=== PATIENT | male | born 1995 | race African-American/Black ===

== ENCOUNTER 2019-06-08 20:40 | Emergency (ER) | payer OTHER, MEDICAID, SELFPAY ==
[2019-06-08 20:46] VITALS: BP 148/78; PULSE 109; RESP 21; O2SAT 100; BMI 24.4
[2019-06-08 21:17] VITALS: BP 124/98; PULSE 97; RESP 16; O2SAT 97
--- NOTE | 2019-06-08 21:25 | ED.SEIZURE ---
HPI - Seizure General Chief Complaint: Seizure Stated Complaint: Seizure Time Seen by Provider: 06/08/19 21:02 Source: EMS Mode of arrival: EMS Limitations: no limitations History of Present Illness HPI Narrative: Patient is a 24-year-old male brought in by EMS for concerns of a seizure. Patient states that he was at work when he had no apparent prodromal symptoms. He states that he was told that he had seizure-like activity. He stated that he was standing in the next minute he was on the ground with people around him. There is no loss of bowel or bladder. Did not bite his tongue. Does report that he was somewhat confused afterwards a by the time he reached the emergency department he was alert and oriented. Patient has had 2 prior seizures several months ago. Patient states that he thinks that these were related to him quitting alcohol ?cold turkey? he has not seen a neurologist. He is not on anti seizure medications. Initial report was that the patient's last drink was 10 days ago. However when I talked to him about it appears that this may have actually been more like his last drink was in the past couple days. Upon my evaluation patient reported no symptoms. Related Data Previous Rx's Medication Instructions Recorded amoxicillin 500 mg capsule 500 mg PO BID #20 cap 05/03/19 levetiracetam [Keppra] 500 mg PO BID #60 tab 06/08/19 Allergies Allergy/AdvReac Type Severity Reaction Status Date / Time cat dander [CAT DANDER] Allergy Mild nose runs, Verified 06/08/19 20:55 eyes water Review of Systems Constitutional Constitutional: Denies fatigue, Denies fever(s), Denies frequent falls and Denies headache(s) Eyes Eyes: Denies change in vision ENT Ears, Nose, Mouth, and Throat: Denies headache(s) Cardiovascular Cardiovascular: Denies chest pain, Denies palpitations and Denies dyspnea Respiratory Respiratory: Denies cough and Denies dyspnea Gastrointestinal Gastrointestinal: Denies abdominal pain, Denies nausea and Denies vomiting Genitourinary Genitourinary: Denies dysuria Musculoskeletal Musculoskeletal: Denies myalgias and Denies arthralgias Integumentary/Breasts Skin/Breast: Denies lesions and Denies rash Neurologic Neurologic: Denies behavioral changes, Denies frequent falls and Denies headache(s) Psychiatric Psychiatric: Denies behavioral changes Endocrine Endocrine: Denies fatigue and Denies palpitations Hematologic/Lymphatic Hematologic/Lymphatic: Denies easy bleeding and Denies easy bruising Patient History Medical History Seizure-like activity (Acute) Social History Smoking Status: Never smoker alcohol intake frequency: 0-2 drinks per day Alcohol type: hard liquor Substance Use Type: does not use Exam Initial Vital Signs Initial Vital Signs: Vital Signs Pulse Rate 109 H 06/08/19 20:46 Respiratory Rate 21 06/08/19 20:46 Blood Pressure 148/78 H 06/08/19 20:46 Pulse Oximetry 100 06/08/19 20:46 Const General: cooperative, comfortable, well developed and well groomed Orientation: alert, awake and oriented x3 HENMT Head: normal to inspection and normocephalic Nose: external nose normal Face and sinus: normal facial exam Mouth: oral mucosae normal Eyes Pupils: PERRL Resp Effort & Inspection: normal respiratory effort Auscultation: clear to auscultation bilaterally Cardio Rate: regular rate Rhythm: regular rhythm Pulses: radial pulses present GI Inspection: non-distended Palpation: soft and No firm Back/Spine/Pelvis Cervical Spine: No cervical spinal tenderness Skin Lesions: no lesions Rashes: no rashes Neuro General: alert, awake and oriented x3 Cranial Nerves: CN's II-XI intact bilaterally Cognition: normal cognition Speech: speech normal Gait: normal gait Motor: muscle tone normal throughout Sensory Exam: no sensory deficits noted Extrem General: normal to inspection and capillary refill normal Psych Appearance: grossly normal and well kempt Scores GCS [place] coma scale eye opening: Spontaneous [place] coma scale verbal response: Orientated [place] coma scale motor response: Obey commands [place] coma scale total score: 15 Nexus Score for C-Spine Focal Neurologic deficit present: No Midline spinal tenderness present: No Altered level of conciousness present: No Intoxication present: No Distracting Injury Present: No Nexus Criteria for C-spine: 0 Course Orders Ordered: Discontinued Medications Levetiracetam (Keppra) 500 mg PO NOW ONE Stop: 06/08/19 21:29 Last Admin: 06/08/19 21:46 Dose: 500 mg Documented by: LREED Vital Signs Vital signs: Vital Signs - 8 hr 06/08/19 20:46 06/08/19 21:17 06/08/19 22:22 Pulse Rate 109 H 97 H 98 H Respiratory Rate 21 16 20 Blood Pressure 148/78 H 139/85 Blood Pressure [Right Arm] 124/98 H Pulse Oximetry 100 97 100 MDM - Seizure MDM Narrative Medical decision making narrative: Patient was alert and oriented x3. In my opinion has capacity make decisions. No injuries reported from the patient or found on exam. His neck is unremarkable. After long discussion with the patient and his grandmother at bedside I do have some concern that his seizure like activities may be alcohol withdrawal. Like I said in the HPI it was reported that his last drink was 10 days ago. This would make it unlikely that today's event was related to alcohol withdrawal however further questioning I do have some suspicion that his last drink may have been within the past 1-2 days. I did inform the patient that it sounds like he has had a seizure. I do not feel the need for head CT your blood work plus the patient declined the offer for any of these interventions. I did inform him that he is not to drive until he is cleared by a neurologist or his primary provider. He expressed understanding of this. His grandmother was at bedside for this discussion. Had a long discussion with him regarding these activities in his alcohol use. Patient declined any help for alcohol out of the emergency department. He was provided resources that he could call. He stated that he knew of AA meetings in the local area. We also discussed that his seizures could potentially be from an underlying seizure disorder. I did give him a dose of Keppra here in the emergency department and will send home with a prescription for this. He was given phone number that he could call to establish a primary provider in the area. Patient was informed he can return to the emergency department any point for new or worsening symptoms. Both he and his grandmother expressed understanding and agreement with plan. Discharge Plan Departure Patient Disposition: Home Clinical Impression: Seizure Discharge Date/Time: 06/08/19 21:46 Instructions: Alcohol Use Disorder, DI for Seizure (Not Epilepsy/Seizure Disorder) Activity Restrictions/Additional Instructions: You are advised that your not to drive until you are cleared by your primary doctor or a neurologist. I recommend that you use the resources that you were given to get some help for your alcohol use. I also recommend that on Sunday you contact the health learning disabilities resource teacher at [phone]. They can help you get established with a primary provider. I recommend that you start taking the seizure medication as directed. Return to the emergency department for any new or worsening symptoms Prescriptions: New levetiracetam [Keppra] 500 mg tablet 500 mg PO BID Qty: 60 RF: 0 No Action amoxicillin 500 mg capsule 500 mg PO BID Qty: 20 RF: 0 Referrals: Vadim Ribeiro MD [Primary Care Provider] -
[2019-06-08] MEDS: levETIRAcetam 250 MG TABLET 500 MG PO (21:46)
[2019-06-08 22:22] VITALS: BP 139/85; PULSE 98; RESP 20; O2SAT 100
== END 2019-06-08 21:46 | disposition home or self-care (01) ==
PROVIDERS: Emergency Provider Emergency Medicine; Family Provider Family Medicine; PCP Family Medicine
DX: R56.9 Unspecified convulsions (principal)
CPT/HCPCS: 99283

== ENCOUNTER 2020-03-05 16:50 | Emergency (ER) | payer OTHER, MEDICAID, SELFPAY ==
[2020-03-05 16:58] VITALS: BP 132/84; PULSE 103; RESP 20; TEMP 36.8; O2SAT 99; BMI 25.7
[2020-03-05] MEDS: diazePAM 5 MG TABLET PO (17:48)
--- NOTE | 2020-03-05 17:55 | ED.SEIZURE ---
HPI - Seizure General Chief Complaint: Seizure Stated Complaint: seizure Time Seen by Provider: 03/05/20 17:00 Source: patient Mode of arrival: EMS Limitations: no limitations History of Present Illness HPI Narrative: Patient is a 25-year-old of alcohol withdrawal seizures presenting after a seizure today. He says that last night he did not drink as much as he usually does he usually drinks about a 5th vodka every and night he is unsure when he drank last night. He had a tonic-clonic seizure witnessed by his coworkers today. He denies any tongue injury or urinary incontinence. He says it has happened to him in the past. He is not ready to quit drinking a he would like to taper off his drinking. Related Data Previous Rx's Medication Instructions Recorded amoxicillin 500 mg capsule 500 mg PO BID #20 cap 05/03/19 levetiracetam [Keppra] 500 mg PO BID #60 tab 06/08/19 levetiracetam [Keppra] 500 mg PO BID #60 tab 03/05/20 Allergies Allergy/AdvReac Type Severity Reaction Status Date / Time cat dander [CAT DANDER] Allergy Mild nose runs, Verified 06/08/19 20:55 eyes water Review of Systems Review of Systems ROS Unobtainable: All systems reviewed & are unremarkable except as noted in HPI and below Constitutional Constitutional: Denies chills, Denies fever(s), Denies lethargy and Denies weakness Eyes Eyes: Denies change in vision, Denies eye discharge, Denies irritation and Denies loss of vision ENT Ears, Nose, Mouth, and Throat: Denies change in voice, Denies neck pain and Denies sore throat Cardiovascular Cardiovascular: Denies chest pain, Denies irregular heart rhythm, Denies lightheadedness, Denies palpitations, Denies dyspnea, Denies dyspnea on exertion and Denies orthopnea Respiratory Respiratory: Denies cough, Denies dyspnea, Denies dyspnea on exertion and Denies wheezing Gastrointestinal Gastrointestinal: Denies abdominal pain, Denies change in bowel habits, Denies diarrhea, Denies nausea and Denies vomiting Musculoskeletal Musculoskeletal: Denies neck pain Integumentary/Breasts Skin/Breast: Denies pruritus, Denies erythema, Denies rash and Denies wounds Neurologic Neurologic: Denies confusion, Denies loss of vision, Reports seizure-like activity and Denies weakness Psychiatric Psychiatric: Denies anxiety, Denies confusion, Denies depression, Denies homicidal ideation and Denies suicidal ideation Endocrine Endocrine: Denies palpitations Allergic/Immunologic Allergic/Immunologic: Denies wheezing Patient History Medical History Seizure-like activity (Acute) Social History Smoking Status: Never smoker Smoking Status: Never smoker alcohol intake frequency: 3 or more drinks per day Alcohol type: hard liquor Substance Use Type: marijuana Exam Initial Vital Signs Initial Vital Signs: Vital Signs Temperature 98.2 F 03/05/20 16:58 Pulse Rate 103 H 03/05/20 16:58 Respiratory Rate 20 03/05/20 16:58 Blood Pressure 132/84 03/05/20 16:58 Pulse Oximetry 99 03/05/20 16:58 GENERAL: Well-appearing, well-nourished and in no acute distress. HEENT: Head atraumatic,EOMI, pupils reactive, face symmetric, moist mucous membranes, no tongue injury CARDIOVASCULAR: Regular rate and rhythm without murmurs, rubs or gallops. RESPIRATORY: Breath sounds equal bilaterally, no wheezes rales or rhonchi. ABDOMEN: Soft, nontender. Normoactive bowel sounds all 4 quadrants. No guarding or rebound. EXTREMITIES: Normal range of motion, no clubbing or edema. Neurovascularly intact NEUROLOGICAL: Alert and oriented x4.Normal gait and speech. Cranial nerves II through XII grossly intact. Snow Fence Erector strength equal bilaterally no asterixis SKIN: Warm, dry, no laceration, no petechiae, no rashes or lesions. Scores NIH Stroke Scale Level of Conciousness: Alert, keenly responsive Ask month/age: Answers both questions correctly. Open/close eyes, close hand: Performs both tasks correctly Best gaze horizontal: Normal Visual [place]: No visual loss Facial palsy: Normal symetrical movement Left arm drift: No drift for full 10 sec Right arm drift: No drift for full 10 sec Left leg drift: No drift for full 10 sec Right leg drift: No drift for full 10 sec Limb ataxia: Absent Sensory on face/arms/legs: Normal, no sensory loss Best language: No aphasia, normal Dysarthria: Normal Extinction or inattention: No abnormality Total NIH Stroke scale score: 0 Course Orders Ordered: Discontinued Medications Diazepam (Valium) 5 mg PO NOW ONE Stop: 03/05/20 17:24 Last Admin: 03/05/20 17:48 Dose: 5 mg Documented by: SANGITA Vital Signs Vital signs: Vital Signs - 8 hr 03/05/20 16:58 03/05/20 18:26 Temperature 98.2 F Pulse Rate 103 H 100 H Respiratory Rate 20 24 Blood Pressure 132/84 126/93 H Pulse Oximetry 99 99 MDM - Seizure MDM Narrative Medical decision making narrative: Patient is absolutely refusing an IV or blood work. He would like to decrease his drinking safely. I did discuss with him a plan on how to decrease his drinking. He is aware that he is not allowed to drive until he is seizure-free. He understands that he may go into a fatal arrhythmia and from alcohol withdrawal. He is given 1 dose of Valium but plans to continue to drink so he will not be given a prescription. He was previously given prescription for Keppra, his last seizure was suspected for alcohol with drawn which he denied. I he states he never filled Keppra. The patient is clinically sober, free from distracting injury, appears to have intact insight, judgment and reason. Does not meet criteria for involuntary hospitalization. Patient has the capacity to make decisions. Discharge Plan Departure Patient Disposition: Home Clinical Impression: Seizure Alcohol withdrawal Qualifiers: Complication of substance-induced condition: with unspecified complication Qualified Code(s): F10.239 - Alcohol dependence with withdrawal, unspecified Discharge Date/Time: 03/05/20 18:40 Instructions: Drug and Alcohol Withdrawal Activity Restrictions/Additional Instructions: DO NOT DRIVE UNTIL CLEARED BY NEUROLOGY *You have been diagnosed with alcohol withdrawal and seizure *What to do: Recommend decreasing your drinking slowly or you will need to stop drinking under supervision and go to detox *Continue to take medications as directed Keppra 500 mg twice a day --> SENT TO [facility] *Follow up with your primary care provider in 2-3 days You will need to see a neurologist *Return to ER if you should have recurrent seizure, shaking, or any new, worsening or concerning symptoms Prescriptions: New levetiracetam [Keppra] 500 mg tablet 500 mg PO BID Qty: 60 RF: 0 No Action amoxicillin 500 mg capsule 500 mg PO BID Qty: 20 RF: 0 levetiracetam [Keppra] 500 mg tablet 500 mg PO BID Qty: 60 RF: 0 Referrals: [facility] [Outside] Vadim Ribeiro MD [Primary Care Provider] - Ken Zhang MD [Non-Staff] -
[2020-03-05 18:26] VITALS: BP 126/93; PULSE 100; RESP 24; O2SAT 99
== END 2020-03-05 18:40 | disposition home or self-care (01) ==
PROVIDERS: Emergency Provider Emergency Medicine; Family Provider Family Medicine; PCP Family Medicine
DX: R56.9 Unspecified convulsions (principal); F10.239 Alcohol dependence with withdrawal, unspecified
CPT/HCPCS: 99283

== ENCOUNTER 2020-07-25 19:51 | Emergency (ER) | payer OTHER, MEDICAID, SELFPAY ==
[2020-07-25 20:05] VITALS: BP 158/96; PULSE 133; RESP 24; TEMP 37.1; O2SAT 99; BMI 25.0
--- NOTE | 2020-07-25 20:09 | ED_ITS ---
HPI - General Adult General Chief complaint: Blood/Body fluid exposure Stated complaint: possible needle stick in public bathroom Time Seen by Provider: 07/25/20 20:00 Source: patient Mode of arrival: Ambulatory Limitations: no limitations History of Present Illness HPI narrative: 25-year-old male nonsmoker with history of seizures and anxiety presents with the chief complaint of feared needlestick exposure 2 days ago. He states he was at a public bathroom and when drying his hands he pulled out some papertowel and felt a poke on his finger. He looked and couldn't see well but thinks there may have been a needle in there. He did not see for sure, he did not notice if there was a syringe or not. He was not wearing gloves. He states it did not draw blood and in fact poked him on an existing callous on the palm of his right hand. He denies pain, redness, swelling, or other complaint. He is concerned about exposure to HIV and refuses any lab work and is requesting antiviral medications. He denies fever, chills, sore throat, loss of smell, cough, shortness of breath or exposure to persons with known COVID Related Data Previous Rx's Medication Instructions Recorded amoxicillin 500 mg capsule 500 mg PO BID #20 cap 05/03/19 levetiracetam [Keppra] 500 mg PO BID #60 tab 06/08/19 levetiracetam [Keppra] 500 mg PO BID #60 tab 03/05/20 Allergies Allergy/AdvReac Type Severity Reaction Status Date / Time cat dander [CAT DANDER] Allergy Mild nose runs, Verified 07/25/20 20:12 eyes water Review of Systems Constitutional Constitutional: Denies chills, Denies fatigue, Denies fever(s), Denies frequent falls, Denies lethargy and Denies weakness Eyes Eyes: Denies change in vision, Denies eye discharge, Denies irritation and Denies loss of vision ENT Ears, Nose, Mouth, and Throat: Denies change in voice, Denies dizziness, Denies neck pain, Denies sore throat and Denies throat swelling Cardiovascular Cardiovascular: Denies chest pain, Denies irregular heart rhythm, Denies lightheadedness, Denies palpitations, Denies dyspnea, Denies dyspnea on exertion and Denies orthopnea Respiratory Respiratory: Denies cough, Denies dyspnea, Denies dyspnea on exertion and Denies wheezing Gastrointestinal Gastrointestinal: Denies abdominal pain, Denies change in bowel habits, Denies diarrhea, Denies nausea and Denies vomiting Musculoskeletal Musculoskeletal: Denies neck pain and Denies numbness Integumentary/Breasts Skin/Breast: Denies pruritus, Denies erythema, Denies rash and Reports wounds Neurologic Neurologic: Denies behavioral changes, Denies confusion, Denies dizziness, Denies frequent falls, Denies loss of vision, Denies numbness and Denies weakness Psychiatric Psychiatric: Denies anxiety, Denies behavioral changes, Denies confusion, Denies depression, Denies homicidal ideation and Denies suicidal ideation Endocrine Endocrine: Denies fatigue, Denies flushing and Denies palpitations Hematologic/Lymphatic Hematologic/Lymphatic: Denies easy bruising Allergic/Immunologic Allergic/Immunologic: Denies urticaria, Denies throat swelling and Denies wheez ing Patient History Medical History Seizure-like activity Social History Smoking Status: Never smoker Smoking Status: Never smoker alcohol intake frequency: 3 or more drinks per day Alcohol type: hard liquor Substance Use Type: marijuana Exam Narrative Exam Narrative: GEN: AOx3 and in mild distress, anxious EYES: Pupils are equal, round, and reactive to light and accommodation. Extraoccular muscles are intact bilaterally. There is no subconjunctival hemorrhage or exudate. CHEST: Lungs are clear to auscultation bilaterally and free of wheezes, rales, or rhonchi. Heart rate is regular rhythm, there are no murmurs, clicks, rubs, or gallops. There is no chest wall tenderness. ABD: Abdomen is soft and nontender. There is no guarding or rebound. Bowel sounds are normal in all 4 quadrants. There is no mass or organomegaly. EXT: Full painless ROM of all extremities with no loss of sensation or strength. SKIN: No evidence of injury or punture to hand. Warm, pink, and dry. No erythema or rash Initial Vital Signs Initial Vital Signs: Vital Signs Temperature 98.7 F 07/25/20 20:05 Pulse Rate 133 H 07/25/20 20:05 Respiratory Rate 24 12/20/20 20:05 Blood Pressure 158/96 H 07/25/20 20:05 Pulse Oximetry 99 07/25/20 20:05 Course Course Course Narrative: I spent a healthy amount of time at bedside discussing with patient. I spoke to him about blood borne pathogens and what would constitute a significant exposure. I did indicate that this scenario would be extremely low risk and that it would not likely meet the definition of significant exposure. He stated that he was admittedly a hypochondriac and that he really just wanted to get the antiviral therapies. I discussed ary and benefit scenarios and told him it would not be indicated to treat at this time. He then asked me to close the door and states that he needed to tell me that he also had unprotected sex with a questionable individual 2 hours prior to the needle stick. He denies any penile drainage, burning, discharge, rash, blisters or other. I told him I'd be happy to test for STDs including HepC, HIV, but when he heard that it would require a blood draw he quickly refused and stated that he would prefer to follow up with his doctor. He understands that he can come back for evaluation in the future should he change his mind and also was given return precautions. Vital Signs Vital signs: Vital Signs - 8 hr 07/25/20 20:05 07/25/20 20:48 Temperature 98.7 F Pulse Rate 133 H 96 H Respiratory Rate 24 18 Blood Pressure 158/96 H 144/83 H Pulse Oximetry 99 100 Discharge Plan Departure Patient Disposition: Home Clinical Impression: Needlestick injury accident Instructions: DI for Accidental Exposure to Body Fluids Activity Restrictions/Additional Instructions: *You have been diagnosed with [possible exposure to needlestick] *What to do: *The criteria for high risk exposure are thankfully not met. If you change your mind about blood draws to further evaluate please feel free to return to the emergency department, the walk-in clinic or call the [facility] resource line listed below *Follow up with your primary care provider in 2-3 days, call for an appointment. Let them know you were seen in the Emergency Department and that we ask that you be seen in follow up *Return to ER if you should have any new, worsening or concerning symptoms Prescriptions: No Action amoxicillin 500 mg capsule 500 mg PO BID Qty: 20 RF: 0 levetiracetam [Keppra] 500 mg tablet 500 mg PO BID Qty: 60 RF: 0 levetiracetam [Keppra] 500 mg tablet 500 mg PO BID Qty: 60 RF: 0 Referrals: [facility] [Outside] Vadim Ribeiro MD [Primary Care Provider] -
[2020-07-25 20:48] VITALS: BP 144/83; PULSE 96; RESP 18; O2SAT 100
== END 2020-07-25 20:50 | disposition home or self-care (01) ==
PROVIDERS: Emergency Provider Emergency Medicine; Family Provider Family Medicine; PCP Family Medicine
DX: Z77.21 Contact with and (suspected) exposure to potentially hazardous body fluids (principal); W46.0XXA Contact with hypodermic needle, initial encounter
CPT/HCPCS: 99281

== ENCOUNTER 2021-10-23 15:34 | Emergency (ER) | payer OTHER, MEDICAID, SELFPAY ==
[2021-10-23 15:39] VITALS: BP 139/82; PULSE 100; RESP 20; TEMP 36.2; O2SAT 100
--- NOTE | 2021-10-23 15:42 | ED.SEIZURE ---
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 Per EMS they did not witness the activity but patient did appear postictal and has had clearing mentation on arrival. He had a glucose in the 130s. Patient refused IV access or other interventions. Patient tells EMS that they have had seizures in the past. They recall feeling unwell and very shaky today. They do not recall the event. They states there were little confused but mentation is feeling better. Patient feels nauseated but no vomiting. No chest pain or shortness of breath. No numbness, tingling or weakness. No fecal or urine incontinence. Patient denies any cuts or lacerations to his tongue or mouth. He states he has never been on medications. When asked about alcohol use he denies but states he does drink a pt daily. When asked about alcohol withdrawal seizures patient denies but prior visits suggest that he may have had alcohol withdrawal seizures. He denies tobacco. States he uses marijuana but denies other illicit. Related Data Previous Rx's Medication Instructions Recorded bupropion HCl 100 mg tablet 100 mg PO BID #60 tab 09/27/21 Allergies Allergy/AdvReac Type Severity Reaction Status Date / Time cat dander [CAT DANDER] Allergy Mild nose runs, Verified 09/27/21 15:47 eyes water Review of Systems Review of Systems ROS Unobtainable: All systems reviewed & are unremarkable except as noted in HPI and below Patient History Medical History Adult ADHD (attention deficit hyperactivity disorder) Depression Eczema Hearing decreased History of alcohol abuse Seizure (~2016) Seizure-like activity Sinus headache Tinnitus Family History Mother Sbtyn-3-ewpcyruhggo deficiency Father Diabetes mellitus Social History Smoking Status: Never smoker Smoking Status: Never smoker alcohol intake frequency: a few times a week Alcohol type: hard liquor Substance Use Type: marijuana Exam Narrative Exam Narrative: GEN: well nourished, well appearing male, alert and oriented x 3, patient appears to be in mild distress. HEENT: Atraumatic, pupils are equal round reactive to light, extraocular movements are intact, nares are clear, TMs are clear with no fluid, there is no conjunctival pallor. Throat is clear without any exudates, erythema, tonsillar enlargement or uvular deviation, no facial droop. No tongue or lip lacerations. HEART: Regular rate and rhythm without murmur, clicks, rubs. Pulses are equal in upper and lower extremities LUNGS:Lungs clear to auscultation, no wheezes, rales, crackles, chest moves symmetrically, no tachypnea accessory muscle use. ABD:bowel sounds normal, soft, non-tender, no guarding, rebound, rigidity, no masses noted, no hepatosplenomegaly :No CVA tenderness MSCL: Non-tender, no muscle atrophy, muscles strength 5/5 upper and lower extremities, full range of motion. NEURO:CN 2-12 intact, sensation normal, mild generalized tremor. SKIN: No rash, erythema or other skin changes. Initial Vital Signs Initial Vital Signs: Vital Signs Temperature 97.1 F L 10/23/21 15:39 Pulse Rate 100 H 10/23/21 15:39 Respiratory Rate 20 10/23/21 15:39 Blood Pressure 139/82 10/23/21 15:39 Pulse Oximetry 100 10/23/21 15:39 Scores [facility] [place] coma scale eye opening: Spontaneous [place] coma scale verbal response: Orientated [place] coma scale motor response: Obey commands [place] coma scale total score: 15 Course Orders Ordered: Discontinued Medications Lorazepam (Lorazepam 0.5 Mg Tablet) 1 mg PO NOW ONE Stop: 10/23/21 15:40 Last Admin: 10/23/21 15:43 Dose: 1 mg Documented by: ISABEL Reevaluation(s) Reevaluation #1: Patient did initially refuse any labs or intervention. Patient alert, appropriate seems to understand his risk versus benefit. He was given a dose of oral Ativan as he is quite shaky. I do suspect he may be having some alcohol withdrawal and his description of drinking a pint daily. He cannot tell me his timing of last ingestion of alcohol. He denies hallucinations. He does appear competent to make the decision to not obtain further workup. We discussed I think this is the wrong choice and that he should be more fully evaluated there was multiple causes that could have caused his seizure today. He did take p.o. Ativan which I think may be helpful for potential alcohol withdrawal. Patient had some improvement in his tremor. His aunt is at bedside and was present while reviewed his Against Medical Advice paperwork. He has not had any additional seizure activity after being observed for over an hour. Patient states he does have 2 roommates and they can help monitor the patient. Time: 16:46 Vital Signs Vital signs: Vital Signs - 8 hr 10/23/21 15:39 10/23/21 16:29 Temperature 97.1 F L Pulse Rate 100 H 94 H Respiratory Rate 20 18 Blood Pressure 139/82 129/74 Pulse Oximetry 100 98 MDM - Seizure MDM Narrative Medical decision making narrative: This is a 26-year-old male who comes in with described seizure activity and what appeared to be postictal to EMS. He had normal glucose in the field he has refused labs, IV draw our imaging. States he is very afraid of needles. Patient did have p.o. Ativan the department he is very shaky and I suspect he has some alcohol withdrawal potentially precipitating seizure activity. He does drink quite heavily he has been here before for suspected alcohol withdrawal seizures as well. Patient had some improvement in his tremor. He appears alert, oriented and competent to make decisions at this time. His aunt is at bedside as well prior to leaving Against Medical Advice. He was willing to be monitored and watched for about an hour and has not had any additional seizure activity and his mentation is continued to improve. We did discuss he can return at any time and that others a wide differential for seizures in the causes that we have not evaluated and without doing so he could potentially have a deadly cause of his seizure activity today and go home and . He does have roommates he states that they would likely be willing to monitor him. His anti is going to drive him this evening. He was encouraged to return at any time. Discharge Plan Departure Patient Disposition: Left Against Medical Advice Clinical Impression: Seizure Activity Restrictions/Additional Instructions: You appear to had a seizure today. This is likely related to alcohol use. It is recommended that you have labs and workup. As you have refused there could be other causes that are missed that are dangerous and can cause . You are welcome to return at any time cleared please return for recurrent seizures, severe headaches, altered mental status, persistent vomiting, new weakness numbness, tingling, hallucinations or other new or concerning symptoms. Prescriptions: No Action bupropion HCl 100 mg tablet 100 mg PO BID Qty: 60 0RF Rx Instructions: Start with 1 tab daily for one week, then increase to 2 tabs daily if needed for symptoms Referrals: Vadim Ribeiro MD [Primary Care Provider] - Stand Alone Forms: Against Medical Advice
[2021-10-23] MEDS: LORazepam 0.5 MG TABLET 1 MG PO (15:43)
[2021-10-23 16:29] VITALS: BP 129/74; PULSE 94; RESP 18; O2SAT 98
== END 2021-10-23 16:55 | disposition left against medical advice (07) ==
PROVIDERS: Emergency Provider Emergency Medicine; Family Provider Family Medicine; PCP Family Medicine
DX: R56.9 Unspecified convulsions (principal); Z53.29 Procedure and treatment not carried out because of patient's decision for other reasons
CPT/HCPCS: 99283

== ENCOUNTER 2021-11-11 16:40 | Emergency (ER) | payer OTHER, MEDICAID, SELFPAY ==
[2021-11-11] VITALS (7 sets, daily range): BP systolic 132–142; BP diastolic 72–81; PULSE 80–109; RESP 14–16; TEMP 36.2; O2SAT 97–100
--- NOTE | 2021-11-11 16:48 | PC.NURSE ---
Pt refusing all lab work and IV access. agreeable to head CT. Dr Nolan made aware
--- NOTE | 2021-11-11 16:49 | DI.CT.S_ITS ---
PROCEDURE: CT HEAD/BRAIN WO CON INDICATIONS: seizure etoh TECHNIQUE: Noncontrast 4.5 mm thick angled axial sections acquired from the foramen magnum to the vertex, with coronal and sagittal reformats. For radiation dose reduction, the following was used: automated exposure control, adjustment of mA and/or kV according to patient size. COMPARISON: [facility], CT, HEAD WITHOUT CONTRAST, 09/03/2017, 15:43. FINDINGS: Image quality: Excellent. CSF spaces: Basal cisterns are patent. No extra-axial fluid collections. Ventricles are normal in size and shape. Brain: No midline shift. No intracranial masses or hemorrhage. Miller-white matter interface is normal. Skull and face: Calvarium and visualized facial bones are intact, without suspicious lesions. Small left frontal scalp hematoma. Sinuses: Visualized sinuses and mastoids are clear. IMPRESSION: No acute intracranial disease process. Dictated by: Alejandra Coon MD, PhD on 11/11/2021 at 17:14 Approved by: Alejandra Coon MD, PhD on 11/11/2021 at 17:16
--- NOTE | 2021-11-11 17:16 | ED_ITS ---
HPI - Seizure General Chief Complaint: Seizure Stated Complaint: Seizure Time Seen by Provider: 11/11/21 16:48 Source: patient and EMS Mode of arrival: EMS Limitations: altered mental status History of Present Illness HPI Narrative: The patient is a 26-year-old male has history of alcohol abuse and previous alcohol withdrawal seizures. Presenting today with his seizure. He was at work when he fell forward hitting his head and had brief seizure. No urinary incontinence or injuries to tongue. Patient says his last drink was about 24 hours ago. He tried to stop. Grandmother actually reports that she has been decreasing his alcohol intake by 1 ouunce every 2 days. Patient has no other complaints. He is adamantly refusing an IV for blood draw. He is agreeable to head CT Related Data Previous Rx's Medication Instructions Recorded bupropion HCl 100 mg tablet See Rx Instructions .ROUTE 10/27/21 .COMPLEX #60 tab dextroamphetamine-amphetamine ER 5 See Rx Instructions PO DAILY #90 11/01/21 mg 24hr capsule,extend release cap Allergies Allergy/AdvReac Type Severity Reaction Status Date / Time cat dander [CAT DANDER] Allergy Mild nose runs, Verified 09/27/21 15:47 eyes water Review of Systems Review of Systems Narrative: GENERAL: Denies chills, fatigue, malaise, fever, sweats, travel HEENT: Denies sinus pain, ear pain, sore throat, difficulty swallowing, neck pain RESPIRATORY: Denies dyspnea, cough, wheezing, hemoptysis, sputum. CARDIOVASCULAR: Denies chest pain, palpitations, orthopnea, edema GASTROINTESTINAL: Denies nausea, vomiting, abdominal pain, diarrhea, constipation, melena. : Denies dysuria, frequency, incontinence, hematuria, urinary retention, flank pain. MUSCULOSKELETAL: Denies weakness, joint pain, or bony pain SKIN: No rash, no erythema, no pruritus NEUROLOGIC: See HPI PSYCHIATRIC: See HPI 12 point review of systems is negative except for those stated above and HPI Patient History Medical History Adult ADHD (attention deficit hyperactivity disorder) Depression Eczema Hearing decreased History of alcohol abuse Seizure (~2016) Seizure-like activity Sinus headache Tinnitus Family History Mother Bqrim-2-ptgtdstwuad deficiency Father Diabetes mellitus Social History Smoking Status: Never smoker Smoking Status: Never smoker alcohol intake frequency: 3 or more drinks per day Alcohol type: hard liquor Substance Use Type: marijuana Exam Initial Vital Signs Initial Vital Signs: Vital Signs Temperature 97.1 F L 11/11/21 16:40 Pulse Rate 109 H 11/11/21 16:40 Respiratory Rate 16 11/11/21 16:40 Blood Pressure 142/81 H 11/11/21 16:40 Pulse Oximetry 99 11/11/21 16:40 GENERAL: Alert well-appearing [id number] in no acute distress. HEENT: Head atraumatic head contusion pupils reactive, face symmetric, no tongue injury CARDIOVASCULAR: Regular rate and rhythm without murmurs, rubs or gallops. RESPIRATORY: Breath sounds equal bilaterally, no wheezes rales or rhonchi. ABDOMEN: Soft, nontender. Normoactive bowel sounds all 4 quadrants. No guarding or rebound. EXTREMITIES: Normal range of motion, no clubbing or edema. Neurovascularly intact NEUROLOGICAL: Alert and oriented x4.Normal gait and speech. Cranial nerves II through XII grossly intact. Good [id number], good [id number], strength equal bilaterally, no dysarthria or aphasia, sensation in tact to soft touch bilaterally, no visual changes, no facial droop SKIN: Warm, dry, no laceration, no petechiae, no rashes or lesions. Course Orders Ordered: ED Orders 11/11/21 16:48 Basic Metabolic Panel Stat Complete Blood Count AUTO DIFF Stat Magnesium Stat Prolactin Stat Urinalysis Screen (Dip Only) Stat Urine Drug Screen, Rapid Stat EKG-12 Lead Stat 11/11/21 16:49 CT head/brain wo con Stat Discontinued Medications Lorazepam (Lorazepam 0.5 Mg Tablet) 2 mg PO NOW ONE Stop: 11/11/21 18:35 Last Admin: 11/11/21 18:46 Dose: 2 mg Documented by: Vital Signs Vital signs: Vital Signs - 8 hr 11/11/21 16:40 11/11/21 16:43 11/11/21 17:01 Temperature 97.1 F L Pulse Rate 109 H 107 H 90 Respiratory Rate 16 Blood Pressure 142/81 H Pulse Oximetry 99 100 97 11/11/21 17:30 11/11/21 18:00 Temperature Pulse Rate 87 85 Respiratory Rate 14 Blood Pressure Pulse Oximetry 100 100 MDM - Seizure Lab Data Labs: Point of Care Testing Glucose POC [address] scan - head: Radiologist's Impression: PROCEDURE:? CT HEAD/BRAIN WO CON ? INDICATIONS:? seizure etoh ? TECHNIQUE:? Noncontrast 4.5 mm thick angled axial sections acquired from the foramen magnum to the vertex, with coronal and sagittal reformats.? For radiation dose reduction, the following was used:? automated exposure control, adjustment of mA and/or kV according to patient size.? ? COMPARISON:? [facility] [place], CT, HEAD WITHOUT CONTRAST, 09/03/2017, 15:43. ? FINDINGS:? Image quality:? Excellent.? ? CSF spaces:? Basal cisterns are patent.? No extra-axial fluid collections.? Ventricles are normal in size and shape.? ? Brain:? No midline shift.? No intracranial masses or hemorrhage.? Miller-white matter interface is normal.? ? Skull and face:? Calvarium and visualized facial bones are intact, without suspicious lesions.? Small left frontal scalp hematoma.? ? Sinuses:? Visualized sinuses and mastoids are clear.? ? IMPRESSION:? No acute intracranial disease process. ? ? Dictated by: Alejandra Coon MD, PhD on 11/11/2021 at 17:14 ? ? Approved by: Alejandra Coon MD, PhD on 11/11/2021 at 17:16 ? [facility] Narrative Medical decision making narrative: Patient adamantly refuses any needle stick. He is offered Ativan to help with his ear which he declined. He is eventually given Ativan to help prevent further seizure. Both he and his grandmother are aware that I cannot tell any electrolyte abnormalities that may or may not be present contributing to his stretcher. His head CT is negative he is neurologically intact. We discussed decreasing alcohol slowly a and going to detox. At this time he does not seem ready. Discharge Plan Departure Patient Disposition: Home Clinical Impression: Alcohol withdrawal seizure Instructions: Drug and Alcohol Withdrawal Activity Restrictions/Additional Instructions: DO NOT DRIVE UNTIL CLEARED BY NEUROLOGY You had an alcohol withdrawal seizure Please continue alcohol, however you need to taper it very closely in decrease the amount 1 week at a time. I also recommend going to detox for this Please follow-up with the primary care provider Return to emergency department if you should have any new or worsening symptoms or recurrent seizure. Prescriptions: No Action bupropion HCl 100 mg tablet See Rx Instructions .ROUTE .COMPLEX Qty: 60 0RF Dose Instruction: TAKE 1 TABLET BY MOUTH DAILY FOR ONE WEEK, THEN INCREASE TO 2 TABLETS DAILY IF NEEDED FOR SYMPTOMS Rx Instructions: TAKE 1 TABLET BY MOUTH DAILY FOR ONE WEEK, THEN INCREASE TO 2 TABLETS DAILY IF NEEDED FOR SYMPTOMS dextroamphetamine-amphetamine 5 mg capsule,extended release 24hr See Rx Instructions PO DAILY Qty: 90 0RF Rx Instructions: Start with 1 cap daily for 3 days, then 2 caps daily for 3 days, then 3 caps daily. PO daily; Stay at the dose that works best for you. Referrals: Jasvir Wright DO [Primary Care Provider] -
[2021-11-11] MEDS: LORazepam 0.5 MG TABLET 2 MG PO (18:46)
== END 2021-11-11 19:06 | disposition home or self-care (01) ==
PROVIDERS: Emergency Provider Emergency Medicine; Family Provider Family Medicine; PCP Family Medicine
DX: F10.239 Alcohol dependence with withdrawal, unspecified (principal); G40.89 Other seizures
CPT/HCPCS: 70450; 82962; 93005; 93010; 99283; 99284

== ENCOUNTER 2023-07-30 10:19 | Observation (INO) | payer OTHER, MEDICAID, SELFPAY ==
[2023-07-30] VITALS (36 sets, daily range): BP systolic 107–147; BP diastolic 61–128; PULSE 69–127; RESP 13–33; TEMP 37.2; O2SAT 88–100; BMI 22.8
--- NOTE | 2023-07-30 10:30 | ED.ALCOHOL ---
HPI - Alcohol <Delma Nolan DO - Last Filed: 07/31/23 09:20> General Chief Complaint: Toxicology Problem Stated Complaint: states he is going to have a seizure Time Seen by Provider: 07/30/23 10:25 History of Present Illness HPI narrative: Patient 28-year-old male history of alcohol abuse presenting today with withdrawal. He states that he typically drinks 0.5 gal of vodka in a week. He is not really had a drink since last week he had a hangover and then has been nauseous vomiting since. He is really not been able to keep anything down. He was shaking he tried to keep them but down this morning but was unable to do so. Very resistant to an IV and blood work. He was seen evaluated here November 2021 and at that time also refused blood work. He has previously had seizures. He is tachycardic with obvious tremors Related Data Allergies Allergy/AdvReac Type Severity Reaction Status Date / Time cat dander [CAT DANDER] Allergy Mild nose runs, Verified 07/30/23 14:15 eyes water Patient History <Delma Nolan DO - Last Filed: 07/31/23 09:20> Medical History Stress at work Hearing decreased Eczema Depression Sinus headache Tinnitus History of alcohol abuse Adult ADHD (attention deficit hyperactivity disorder) Seizure-like activity Seizure (~2015) Family History Mother Woimt-[id number] deficiency Father Diabetes mellitus Social History household members: other Smoking Status: Never smoker Smoking Status: Never smoker alcohol intake frequency: 3 or more drinks per day Alcohol type: hard liquor Substance Use Type: marijuana Exam <Delma Nolan DO - Last Filed: 07/31/23 09:20> Initial Vital Signs Initial Vital Signs: Vital Signs Temperature 98.9 F 07/30/23 10:20 Pulse Rate 122 H 07/30/23 10:20 Respiratory Rate 24 07/30/23 10:20 Blood Pressure 116/78 07/30/23 10:20 Pulse Oximetry 100 07/30/23 10:20 Oxygen Delivery Method Room Air 07/30/23 10:20 GENERAL: Alert 28-year-old male tremors HEENT: Head atraumatic,EOMI, pupils reactive, face symmetric, moist mucous membranes CARDIOVASCULAR: Regular rate and rhythm without murmurs, rubs or gallops. RESPIRATORY: Breath sounds equal bilaterally, no wheezes rales or rhonchi. ABDOMEN: Soft, nontender. Normoactive bowel sounds all 4 quadrants. No guarding or rebound. EXTREMITIES: Normal range of motion, no clubbing or edema. Neurovascularly intact NEUROLOGICAL: Alert and oriented x4.Normal gait and speech. Moving all extremities resting tremor SKIN: Warm, dry, no laceration, no petechiae, no rashes or lesions. <Harpal Tidwell, DO - Last Filed: 07/31/23 17:57> Initial Vital Signs Initial Vital Signs: Vital Signs Temperature 98.9 F 07/30/23 10:20 Pulse Rate 122 H 07/30/23 10:20 Respiratory Rate 24 07/30/23 10:20 Blood Pressure 116/78 07/30/23 10:20 Pulse Oximetry 100 07/30/23 10:20 Oxygen Delivery Method Room Air 07/30/23 10:20 Course <Delma Nolan, DO - Last Filed: 07/31/23 09:20> Orders Ordered: Discontinued Medications Acetaminophen (Acetaminophen 325 Mg Tablet) 650 mg PO Q6H PRN PRN Reason: Fever/Mild Pain (1-3) Diazepam (Diazepam 5 Mg Tablet) 10 mg PO NOW ONE Stop: 07/30/23 11:26 Last Admin: 07/30/23 11:32 Dose: 10 mg Documented By: RB Diazepam (Diazepam 10 Mg/2 Ml Syringe) 2 mg IV NOW ONE Stop: 07/30/23 16:00 Last Admin: 07/30/23 16:04 Dose: 2 mg Documented By: RB Folic Acid (Folic Acid 1 Mg Tablet) 1 mg PO DAILY LAUREN Last Admin: 07/31/23 10:16 Dose: 1 mg Documented By: KB Sodium Chloride (Normal Saline 0.9%) 1,000 mls @ 1,000 mls/hr IV BOLUS ONE Stop: 07/30/23 13:19 Last Infusion: 07/30/23 13:54 Dose: Infused Documented By: Admin: 07/30/23 12:26 Dose: 1,000 mls/hr Documented By: RB POTASSIUM CHLORIDE IN WATER (Potassium Cl 10 Meq/100 Ml Charleen) 10 meq in 100 mls @ 100 mls/hr IV Q1H LAUREN Stop: 07/30/23 19:29 Last Infusion: 07/30/23 21:33 Dose: Infused Documented By: Admin: 07/30/23 19:26 Dose: 100 mls/hr Documented By: Infusion: 07/30/23 19:20 Dose: Infused Documented By: Admin: 07/30/23 18:20 Dose: 100 mls/hr Documented By: Infusion: 07/30/23 18:09 Dose: Infused Documented By: Admin: 07/30/23 17:09 Dose: 100 mls/hr Documented By: Infusion: 07/30/23 16:58 Dose: Infused Documented By: Admin: 07/30/23 15:58 Dose: 100 mls/hr Documented By: Infusion: 07/30/23 15:55 Dose: Infused Documented By: Admin: 07/30/23 14:55 Dose: 100 mls/hr Documented By: Infusion: 07/30/23 14:55 Dose: Infused Documented By: Admin: 07/30/23 13:55 Dose: 100 mls/hr Documented By: OW Magnesium Sulfate (Magnesium Sulfate) 4 gm in 100 mls @ 25 mls/hr IV NOW ONE Stop: 07/30/23 18:31 Last Infusion: 07/30/23 18:57 Dose: Infused Documented By: RB Co-signed By: BB Admin: 07/30/23 15:09 Dose: 25 mls/hr Documented By: RB Co-signed By: KLS Sodium Chloride (Normal Saline 0.9%) 1,000 mls @ 150 mls/hr IV CONT LAUREN Last Infusion: 07/31/23 09:21 Dose: Infused Documented By: Admin: 07/31/23 02:22 Dose: 150 mls/hr Documented By: Infusion: 07/31/23 02:22 Dose: Infused Documented By: Admin: 07/30/23 20:18 Dose: 150 mls/hr Documented By: Infusion: 07/30/23 20:18 Dose: Infused Documented By: Admin: 07/30/23 14:55 Dose: 150 mls/hr Documented By: RB Thiamine HCl 100 mg/ Sodium (Chloride) 101 mls @ 404 mls/hr IV NOW ONE Stop: 07/30/23 18:01 Last Infusion: 07/30/23 18:47 Dose: Infused Documented By: Admin: 07/30/23 18:17 Dose: 404 mls/hr Documented By: RB Piperacillin Sod/Tazobactam (Sod 4.5 gm/ Sodium Chloride) 100 mls @ 200 mls/hr IV NOW ONE Stop: 07/30/23 18:01 Last Infusion: 07/30/23 18:57 Dose: Infused Documented By: Admin: 07/30/23 18:21 Dose: 200 mls/hr Documented By: RB Sodium Chloride (Normal Saline 0.9%) 1,000 mls @ 100 mls/hr IV CONT [facility] Last Admin: 07/31/23 10:16 Dose: 100 mls/hr Documented By: FARZAD Lorazepam (Lorazepam 1 Mg Tablet) 0 mg PO CIWAPRN PRN; Protocol PRN Reason: Alcohol Withdrawal Lorazepam (Lorazepam 2 Mg/Ml Inj) 0 mg IV CIWAPRN PRN; Protocol PRN Reason: Alcohol Withdrawal Multivitamins (Multivitamin 1 Tablet) 1 tab PO DAILY [facility] Last Admin: 07/31/23 10:16 Dose: 1 tab Documented By: FARZAD Naloxone HCl (Naloxone 0.4 Mg/Ml Vial) 0.2 mg IV Q2MIN PRN PRN Reason: Opiate Reversal Ondansetron HCl (Ondansetron 4 Mg Odt) 4 mg SL NOW ONE Stop: 07/30/23 10:31 Last Admin: 07/30/23 10:35 Dose: 4 mg Documented By: DARSHANA Ondansetron HCl (Ondansetron 4 Mg Odt) 4 mg PO Q8HR PRN PRN Reason: Nausea And Vomiting Pantoprazole Sodium (Pantoprazole 40 Mg Vial) 40 mg IV NOW ONE Stop: 07/30/23 15:13 Last Admin: 07/30/23 15:18 Dose: 40 mg Documented By: DARSHANA Phenobarbital (Phenobarbital 65 Mg/Ml Vial) 260 mg IM NOW ONE Stop: 07/30/23 10:31 Last Admin: 07/30/23 10:35 Dose: 260 mg Documented By: DARSHANA Thiamine HCl (Thiamine 100 Mg Tablet) 100 mg PO DAILY [facility] Stop: 08/03/23 09:01 Last Admin: 07/31/23 10:16 Dose: 100 mg Documented By: FARZAD Vital Signs Vital signs: Vital Signs - 8 hr 07/31/23 01:30 07/31/23 01:30 07/31/23 02:00 Pulse Rate 83 Respiratory Rate 15 Blood Pressure 122/85 116/62 Pulse Oximetry 95 07/31/23 02:00 07/31/23 02:30 07/31/23 02:30 Pulse Rate 72 72 Respiratory Rate 16 14 Blood Pressure 105/55 L Pulse Oximetry 96 96 07/31/23 03:00 07/31/23 03:00 07/31/23 03:30 Pulse Rate 70 Respiratory Rate 15 Blood Pressure 105/59 L 118/75 Pulse Oximetry 96 07/31/23 03:30 07/31/23 04:00 07/31/23 04:00 Pulse Rate 77 78 Respiratory Rate 18 13 Blood Pressure 121/80 Pulse Oximetry 97 96 07/31/23 04:30 07/31/23 04:31 07/31/23 04:31 Pulse Rate 93 H 90 Respiratory Rate 39 H 28 H Blood Pressure 122/78 Pulse Oximetry 97 96 07/31/23 05:00 07/31/23 05:00 07/31/23 05:30 Pulse Rate 85 89 Respiratory Rate 30 H 23 Blood Pressure 109/78 Pulse Oximetry 98 98 07/31/23 05:30 07/31/23 06:00 07/31/23 06:01 Pulse Rate 82 84 Respiratory Rate 12 26 H Blood Pressure 115/57 L Pulse Oximetry 97 96 07/31/23 06:01 07/31/23 06:30 07/31/23 06:31 Pulse Rate 94 H Respiratory Rate 26 H Blood Pressure 106/49 L 134/77 134/77 Pulse Oximetry 100 07/31/23 06:31 07/31/23 07:00 07/31/23 07:00 Pulse Rate 94 H 87 Respiratory Rate 34 H 20 Blood Pressure 131/74 Pulse Oximetry 99 98 07/31/23 07:30 07/31/23 07:30 07/31/23 08:00 Pulse Rate 86 84 Respiratory Rate 23 13 Blood Pressure 124/75 Pulse Oximetry 99 98 07/31/23 08:00 Pulse Rate Respiratory Rate Blood Pressure 133/83 Pulse Oximetry <Harpal Tidwell, - Last Filed: 07/31/23 17:57> Orders Ordered: Discontinued Medications Acetaminophen (Acetaminophen 325 Mg Tablet) 650 mg PO Q6H PRN PRN Reason: Fever/Mild Pain (1-3) Diazepam (Diazepam 5 Mg Tablet) 10 mg PO NOW ONE Stop: 07/30/23 11:26 Last Admin: 07/30/23 11:32 Dose: 10 mg Documented By: RB Diazepam (Diazepam 10 Mg/2 Ml Syringe) 2 mg IV NOW ONE Stop: 07/30/23 16:00 Last Admin: 07/30/23 16:04 Dose: 2 mg Documented By: RB Folic Acid (Folic Acid 1 Mg Tablet) 1 mg PO DAILY [facility] Last Admin: 07/31/23 10:16 Dose: 1 mg Documented By: KB Sodium Chloride (Normal Saline 0.9%) 1,000 mls @ 1,000 mls/hr IV BOLUS ONE Stop: 07/30/23 13:19 Last Infusion: 07/30/23 13:54 Dose: Infused Documented By: Admin: 07/30/23 12:26 Dose: 1,000 mls/hr Documented By: RB POTASSIUM CHLORIDE IN WATER (Potassium Cl 10 Meq/100 Ml Charleen) 10 meq in 100 mls @ 100 mls/hr IV Q1H LAUREN Stop: 07/30/23 19:29 Last Infusion: 07/30/23 21:33 Dose: Infused Documented By: Admin: 07/30/23 19:26 Dose: 100 mls/hr Documented By: Infusion: 07/30/23 19:20 Dose: Infused Documented By: Admin: 07/30/23 18:20 Dose: 100 mls/hr Documented By: Infusion: 07/30/23 18:09 Dose: Infused Documented By: Admin: 07/30/23 17:09 Dose: 100 mls/hr Documented By: Infusion: 07/30/23 16:58 Dose: Infused Documented By: Admin: 07/30/23 15:58 Dose: 100 mls/hr Documented By: Infusion: 07/30/23 15:55 Dose: Infused Documented By: Admin: 07/30/23 14:55 Dose: 100 mls/hr Documented By: Infusion: 07/30/23 14:55 Dose: Infused Documented By: Admin: 07/30/23 13:55 Dose: 100 mls/hr Documented By: OW Magnesium Sulfate (Magnesium Sulfate) 4 gm in 100 mls @ 25 mls/hr IV NOW ONE Stop: 07/30/23 18:31 Last Infusion: 07/30/23 18:57 Dose: Infused Documented By: RB Co-signed By: FREDIS Admin: 07/30/23 15:09 Dose: 25 mls/hr Documented By: RB Co-signed By: DARYN Sodium Chloride (Normal Saline 0.9%) 1,000 mls @ 150 mls/hr IV CONT LAUREN Last Infusion: 07/31/23 09:21 Dose: Infused Documented By: Admin: 07/31/23 02:22 Dose: 150 mls/hr Documented By: Infusion: 07/31/23 02:22 Dose: Infused Documented By: Admin: 07/30/23 20:18 Dose: 150 mls/hr Documented By: Infusion: 07/30/23 20:18 Dose: Infused Documented By: Admin: 07/30/23 14:55 Dose: 150 mls/hr Documented By: RB Thiamine HCl 100 mg/ Sodium (Chloride) 101 mls @ 404 mls/hr IV NOW ONE Stop: 07/30/23 18:01 Last Infusion: 07/30/23 18:47 Dose: Infused Documented By: Admin: 07/30/23 18:17 Dose: 404 mls/hr Documented By: RB Piperacillin Sod/Tazobactam (Sod 4.5 gm/ Sodium Chloride) 100 mls @ 200 mls/hr IV NOW ONE Stop: 07/30/23 18:01 Last Infusion: 07/30/23 18:57 Dose: Infused Documented By: Admin: 07/30/23 18:21 Dose: 200 mls/hr Documented By: RB Sodium Chloride (Normal Saline 0.9%) 1,000 mls @ 100 mls/hr IV CONT [facility] Last Admin: 07/31/23 10:16 Dose: 100 mls/hr Documented By: FARZAD Lorazepam (Lorazepam 1 Mg Tablet) 0 mg PO CIWAPRN PRN; Protocol PRN Reason: Alcohol Withdrawal Lorazepam (Lorazepam 2 Mg/Ml Inj) 0 mg IV CIWAPRN PRN; Protocol PRN Reason: Alcohol Withdrawal Multivitamins (Multivitamin 1 Tablet) 1 tab PO DAILY [facility] Last Admin: 07/31/23 10:16 Dose: 1 tab Documented By: FARZAD Naloxone HCl (Naloxone 0.4 Mg/Ml Vial) 0.2 mg IV Q2MIN PRN PRN Reason: Opiate Reversal Ondansetron HCl (Ondansetron 4 Mg Odt) 4 mg SL NOW ONE Stop: 07/30/23 10:31 Last Admin: 07/30/23 10:35 Dose: 4 mg Documented By: RB Ondansetron HCl (Ondansetron 4 Mg Odt) 4 mg PO Q8HR PRN PRN Reason: Nausea And Vomiting Pantoprazole Sodium (Pantoprazole 40 Mg Vial) 40 mg IV NOW ONE Stop: 07/30/23 15:13 Last Admin: 07/30/23 15:18 Dose: 40 mg Documented By: RB Phenobarbital (Phenobarbital 65 Mg/Ml Vial) 260 mg IM NOW ONE Stop: 07/30/23 10:31 Last Admin: 07/30/23 10:35 Dose: 260 mg Documented By: RB Thiamine HCl (Thiamine 100 Mg Tablet) 100 mg PO DAILY [facility]UREN Stop: 08/03/23 09:01 Last Admin: 07/31/23 10:16 Dose: 100 mg Documented By: FARZAD Vital Signs Vital signs: Vital Signs - 8 hr 07/31/23 01:30 07/31/23 01:30 07/31/23 02:00 Pulse Rate 83 Respiratory Rate 15 Blood Pressure 122/85 116/62 Pulse Oximetry 95 07/31/23 02:00 07/31/23 02:30 07/31/23 02:30 Pulse Rate 72 72 Respiratory Rate 16 14 Blood Pressure 105/55 L Pulse Oximetry 96 96 07/31/23 03:00 07/31/23 03:00 07/31/23 03:30 Pulse Rate 70 Respiratory Rate 15 Blood Pressure 105/59 L 118/75 Pulse Oximetry 96 07/31/23 03:30 07/31/23 04:00 07/31/23 04:00 Pulse Rate 77 78 Respiratory Rate 18 13 Blood Pressure 121/80 Pulse Oximetry 97 96 07/31/23 04:30 07/31/23 04:31 07/31/23 04:31 Pulse Rate 93 H 90 Respiratory Rate 39 H 28 H Blood Pressure 122/78 Pulse Oximetry 97 96 07/31/23 05:00 07/31/23 05:00 07/31/23 05:30 Pulse Rate 85 89 Respiratory Rate 30 H 23 Blood Pressure 109/78 Pulse Oximetry 98 98 07/31/23 05:30 07/31/23 06:00 07/31/23 06:01 Pulse Rate 82 84 Respiratory Rate 12 26 H Blood Pressure 115/57 L Pulse Oximetry 97 96 07/31/23 06:01 07/31/23 06:30 07/31/23 06:31 Pulse Rate 94 H Respiratory Rate 26 H Blood Pressure 106/49 L 134/77 134/77 Pulse Oximetry 100 07/31/23 06:31 07/31/23 07:00 07/31/23 07:00 Pulse Rate 94 H 87 Respiratory Rate 34 H 20 Blood Pressure 131/74 Pulse Oximetry 99 98 07/31/23 07:30 07/31/23 07:30 07/31/23 08:00 Pulse Rate 86 84 Respiratory Rate 23 13 Blood Pressure 124/75 Pulse Oximetry 99 98 07/31/23 08:00 Pulse Rate Respiratory Rate Blood Pressure 133/83 Pulse Oximetry MDM - Alcohol <Delma Nolan, DO - Last Filed: 07/31/23 09:20> Lab Data 07/31/23 04:10 07/31/23 15:33 Labs: Lab Results 07/30/23 07/30/23 07/30/23 Range/Units 12:10 12:30 14:30 WBC 15.8 H (4.5-11.0) X10^3/uL RBC 5.22 (4.5-5.9) X10^6/uL Hgb 18.1 H (13.5-17.5) g/dL Hct 50.8 (41-53) % MCV 97.2 (80-100) fL MCH 34.7 H (26-34) PG MCHC 35.7 (30-36) % RDW 14.4 (11.6-14.8) % Plt Count 138 L (150-400) X10^3/uL Neut % (Auto) Not Reportable Lymph % (Auto) Not Reportable Monona % (Auto) Not Reportable Eos % (Auto) Not Reportable Baso % (Auto) Not Reportable Neut # (Auto) (7538-5124) /uL Lymph # (Auto) Not Reportable Monona # (Auto) Not Reportable Eos # (Auto) (0-450) /uL Baso # (Auto) Not Reportable Total Counted 100 Seg Neutrophils % 74.0 H (38-70) % Band Neutrophils % 5.0 (3-7) % Lymphocytes % (Manual) 6.0 L (25-45) % Monocytes % (Manual) 14.0 H (2-11) % Myelocytes % 1.0 H (-0) % Neutrophils # (Manual) 10515 H (8436-3832) /uL Plt Morphology Comment RBC Morphology See below Anisocytosis 1+ H PT 13.5 H (9.4-12.5) SECONDS INR 1.2 (0.9-1.3) APTT 25 L (25.1-36.5) SECONDS Sodium 125 L 124 L (137-145) mmol/L Potassium 2.7 L* 2.5 L* (3.4-5.1) mmol/L Chloride 52 L* 60 L* (98-107) mmol/L Carbon Dioxide 40 H* 40 H* (22-32) mmol/L BUN 101 H 99 H (9-20) mg/dL Creatinine 3.98 H 3.35 H (0.66-1.25) mg/dL Estimated GFR 20 L 24 L (>60) mL/min BUN/Creatinine Ratio 25.4 H 29.6 H (6-22) Glucose 100 91 (70-100) mg/dL Lactate 3.7 H (0.7-2.1) mmol/L Calcium 9.1 7.8 L (8.4-10.2) mg/dL Magnesium 1.1 L (1.6-2.3) mg/dL Total Bilirubin 4.4 H 3.9 H (0.2-1.3) mg/dL AST 389 H 303 H (17-59) IU/L ALT 304 H 249 H (<50) IU/L Alkaline Phosphatase 108 89 (38-126) U/L Total Creatine Kinase 142 (55-170) U/L Total Protein 10.7 H 8.8 H (6.3-8.2) g/dL Albumin 5.4 H 4.8 (3.5-5.0) g/dL Globulin 5.3 H 4.0 (1.7-4.1) g/dL Albumin/Globulin Ratio 1.0 1.2 (1.0-2.8) Lipase 127 (23-300) U/L Urine Color Urine Appearance Urine pH (4.5-8.0) Ur Specific Buchanan (1.000-1.035) Urine Protein (Negative) Urine Glucose (UA) (Negative) g/dL Urine Ketones (NEGATIVE) Urine Occult Blood (Negative) Urine Nitrate (Negative) Urine Bilirubin (NEGATIVE) Ur Bilirubin Confirm Urine Urobilinogen (0.2) E.U./dL Ur Leukocyte Esterase (NEGATIVE) Urine RBC (0-5/HPF) Urine WBC (0-5/HPF) Ur Squamous Epith Cells (0-5/HPF) Urine Bacteria (None) Hyaline Casts (None) Ur Culture Indicated? Ethyl Alcohol < 10 ( - 10) mg/dL SARS-CoV-2 (PCR) Negative (Negative) 07/30/23 07/30/23 07/30/23 Range/Units 15:28 17:35 17:40 WBC 16.1 H (4.5-11.0) X10^3/uL RBC 4.33 L (4.5-5.9) X10^6/uL Hgb 15.0 (13.5-17.5) g/dL Hct 42.2 (41-53) % MCV 97.3 (80-100) fL MCH 34.7 H (26-34) PG MCHC 35.7 (30-36) % RDW 14.2 (11.6-14.8) % Plt Count 128 L (150-400) X10^3/uL Neut % (Auto) 77.1 H Lymph % (Auto) 11.5 L Monona % (Auto) 10.9 Eos % (Auto) 0.2 L Baso % (Auto) 0.3 Neut # (Auto) 35871 H (9077-6360) /uL Lymph # (Auto) 1800 [place] # (Auto) 1800 H Eos # (Auto) 0 (0-450) /uL Baso # (Auto) 0 Total Counted Seg Neutrophils % (38-70) % Band Neutrophils % (3-7) % Lymphocytes % (Manual) (25-45) % Monocytes % (Manual) (2-11) % Myelocytes % (-0) % Neutrophils # (Manual) (3003-2969) /uL Plt Morphology Comment RBC Morphology Anisocytosis PT (9.4-12.5) SECONDS INR (0.9-1.3) APTT (25.1-36.5) SECONDS Sodium (137-145) mmol/L Potassium (3.4-5.1) mmol/L Chloride (98-107) mmol/L Carbon Dioxide (22-32) mmol/L BUN (9-20) mg/dL Creatinine (0.66-1.25) mg/dL Estimated GFR (>60) mL/min BUN/Creatinine Ratio (6-22) Glucose (70-100) mg/dL Lactate 1.3 (0.7-2.1) mmol/L Calcium (8.4-10.2) mg/dL Magnesium (1.6-2.3) mg/dL Total Bilirubin (0.2-1.3) mg/dL AST (17-59) IU/L ALT (<50) IU/L Alkaline Phosphatase (38-126) U/L Total Creatine Kinase (55-170) U/L Total Protein (6.3-8.2) g/dL Albumin (3.5-5.0) g/dL Globulin (1.7-4.1) g/dL Albumin/Globulin Ratio (1.0-2.8) Lipase (23-300) U/L Urine Color Dark yellow Urine Appearance Cloudy Urine pH 5.0 (4.5-8.0) Ur Specific Buchanan >=1.030 H (1.000-1.035) Urine Protein 2+ H (Negative) Urine Glucose (UA) Negative (Negative) g/dL Urine Ketones 1+ H (NEGATIVE) Urine Occult Blood 3+ H (Negative) Urine Nitrate Negative (Negative) Urine Bilirubin 2+ H (NEGATIVE) Ur Bilirubin Confirm Cancelled Urine Urobilinogen 1.0 (0.2) E.U./dL Ur Leukocyte Esterase Trace H (NEGATIVE) Urine RBC 5-10/hpf H (0-5/HPF) Urine WBC 5-10/hpf H (0-5/HPF) Ur Squamous Epith Cells 1-5 /hpf (0-5/HPF) Urine Bacteria Few (2-10) H (None) Hyaline Casts 1-5/lpf (None) Ur Culture Indicated? Specimen cultured Ethyl Alcohol ( - 10) mg/dL SARS-CoV-2 (PCR) (Negative) 07/30/23 07/31/23 Range/Units 18:25 04:10 WBC 9.6 (4.5-11.0) X10^3/uL RBC 4.03 L (4.5-5.9) X10^6/uL Hgb 14.0 (13.5-17.5) g/dL Hct 39.4 L (41-53) % MCV 97.9 (80-100) fL MCH 34.9 H (26-34) PG MCHC 35.6 (30-36) % RDW 14.0 (11.6-14.8) % Plt Count 77 L (150-400) X10^3/uL Neut % (Auto) 72.1 Lymph % (Auto) 12.6 L [place] % (Auto) 13.8 Eos % (Auto) 0.7 L Baso % (Auto) 0.8 Neut # (Auto) 6900 (0110-3928) /uL Lymph # (Auto) 1200 [place] # (Auto) 1300 H Eos # (Auto) 100 (0-450) /uL Baso # (Auto) 100 Total Counted Seg Neutrophils % (38-70) % Band Neutrophils % (3-7) % Lymphocytes % (Manual) (25-45) % Monocytes % (Manual) (2-11) % Myelocytes % (-0) % Neutrophils # (Manual) (7755-6380) /uL Plt Morphology Comment RBC Morphology Anisocytosis PT (9.4-12.5) SECONDS INR (0.9-1.3) APTT (25.1-36.5) SECONDS Sodium 120 L 125 L (137-145) mmol/L Potassium 3.2 L 3.6 (3.4-5.1) mmol/L Chloride 65 L* 73 L* (98-107) mmol/L Carbon Dioxide 37 H 40 H* (22-32) mmol/L BUN 90 H 75 H (9-20) mg/dL Creatinine 3.26 H 2.75 H (0.66-1.25) mg/dL Estimated GFR 25 L 31 L (>60) mL/min BUN/Creatinine Ratio 27.6 H 27.3 H (6-22) Glucose 102 H 87 (70-100) mg/dL Lactate (0.7-2.1) mmol/L Calcium 7.5 L 7.7 L (8.4-10.2) mg/dL Magnesium 3.0 H (1.6-2.3) mg/dL Total Bilirubin 3.6 H 3.6 H (0.2-1.3) mg/dL AST 240 H 168 H (17-59) IU/L ALT 218 H 183 H (<50) IU/L Alkaline Phosphatase 83 71 (38-126) U/L Total Creatine Kinase (55-170) U/L Total Protein 7.7 7.4 (6.3-8.2) g/dL Albumin 4.3 4.0 (3.5-5.0) g/dL Globulin 3.4 3.4 (1.7-4.1) g/dL Albumin/Globulin Ratio 1.3 1.2 (1.0-2.8) Lipase 156 (23-300) U/L Urine Color Urine Appearance Urine pH (4.5-8.0) Ur Specific [place]anan (1.000-1.035) Urine Protein (Negative) Urine Glucose (UA) (Negative) g/dL Urine Ketones (NEGATIVE) Urine Occult Blood (Negative) Urine Nitrate (Negative) Urine Bilirubin (NEGATIVE) Ur Bilirubin Confirm Urine Urobilinogen (0.2) E.U./dL Ur Leukocyte Esterase (NEGATIVE) Urine RBC (0-5/HPF) Urine WBC (0-5/HPF) Ur Squamous Epith Cells (0-5/HPF) Urine Bacteria (None) Hyaline Casts (None) Ur Culture Indicated? Ethyl Alcohol ( - 10) mg/dL SARS-CoV-2 (PCR) (Negative) Point of Care Testing Glucose POC [address] scan - abdomen/pelvis: Radiologist's Impressoin: PROCEDURE: CT ABDOMEN PELVIS WO CON INDICATIONS: liver and renal failure TECHNIQUE: Noncontrast 5 mm thick sections acquired from the diaphragms to the symphysis. 5 mm coronal and sagittal reformats were then performed. For radiation dose reduction, the following was used: automated exposure control, adjustment of mA and/or kV according to patient size. COMPARISON: None. FINDINGS: Image quality: Diagnostic. Lower Chest: No significant findings. ABDOMEN: Liver: No contour deforming mass. Hepatic steatosis. Gallbladder: Cholelithiasis without wall thickening or adjacent fat stranding to suggest acute cholecystitis. Biliary ducts: No biliary dilation. Pancreas: No ductal dilation. Spleen: Size is within normal limits. Adrenal Glands: No adrenal nodules. Kidneys and Ureters: No hydronephrosis. No solid mass. No complex renal cystic lesion which requires follow up. lobulation. Stomach and Bowel: Normal colonic caliber, without significant wall thickening. Peritoneum: No abnormal intraperitoneal fluid. No free air. Ventral Wall: No hernia. Abdominal Nodes: No retroperitoneal or mesenteric adenopathy by size criteria. Vessels: Aorta and inferior vena cava are normal in size. PELVIS: Pelvic Organs: Unremarkable. Bladder: Unremarkable. Pelvic Nodes: No enlarged lymph nodes. Miscellaneous: No inguinal hernias are seen. Bones: No aggressive osseous abnormality. IMPRESSION: Cholelithiasis without wall thickening or adjacent fat stranding to suggest acute cholecystitis. Hepatic steatosis. No renal abnormality. Dictated by: Paul Tay M.D. on 07/30/2023 at 14:46 US - abdomen: Radiologist's Impressoin: PROCEDURE: US ABDOMEN LIMITED INDICATIONS: ruq high bilirubin, concern for cholelithiasis TECHNIQUE: Real-time scanning was performed of the abdominal and retroperitoneal organs, with image documentation. COMPARISON: None. FINDINGS: Liver: Increased liver echogenicity. Mild posterior attenuation. Gallbladder: Cholelithiasis. No wall thickening. No pericholecystic edema. Negative sonographic Viveros's sign. Biliary ducts: Intrahepatic bile ducts are non-dilated. Extrahepatic bile duct caliber measures 4 mm. Normal is 6-7 mm or less in diameter, or 10 mm or less post-cholecystectomy. Pancreas: Not visualized due to overlying bowel gas. IMPRESSION: Cholelithiasis without sonographic evidence of acute cholecystitis. Dictated by: Paul Tay M.D. on 07/30/2023 at 16:07 ECG Data Interpretation: Normal sinus rhythm rate 92 HI interval 142 QRS 82 QTC prolonged at [address] changes MDM Narrative Medical decision making narrative: [facility] CC: Shaking withdrawal symptoms Complicating co-morbidities: Alcohol use Corroborating data: Previous visit Data collected from: [ ] Medical records reviewed: yes, previous ED visit Differential considered: [ ] Exam documented above, pertinent findings include: Tremors shaking Lab Test results independently reviewed as above. Pertinent findings: WBC 15.8, hemoglobin 18.1, hematocrit 50.8, PT 13.5, INR 1.2, APTT 2, sodium 125, potassium 2.7, chloride 52, carbon dioxide 40, BUN 101, crit 3.9, lactate 3.7, bilirubin 4.4, AST 389, ALT 304, lipase 127. Repeat electrolyte panel creatinine improved to 3.35 after 1 L of fluid sodium remains low at 124, potassium has remained low at 2.5 without repletion yet chloride improved to 60 and lactate improved to 1.3. Bilirubin improved to 3.9, AST improved 09/08/2002, ALT improved to 249 Independently reviewed EKG as above Imaging studies independently reviewed: Cholelithiasis without evidence of cholecystitis Consultations: [ ] Treatments: Valium phenobarbital, IV fluids Protonix Re-evaluations: Agreed to IV blood work and fluids ultimately improving Discussion: Patient presents today with shaking concerning for alcohol withdrawal cause. Initially given phenobarbital IM and Valium. Took a long time to convince him for blood work and an IV. Blood work reveals significant electrolyte abnormalities with elevated creatinine. Concern is for dehydration with decreased intake and vomiting. However he is significant elevation in liver enzymes and bilirubin concern for hepatorenal syndrome. Renal function is improving with IV fluids. His abdomen is relatively soft and nontender. CT and ultrasound do shoe show cholelithiasis without evidence of cholecystitis. No renal abnormality noted on CT. He continues to require medication for delirium tremens. He is afebrile. Apparently his grandmother tested positive for COVID he lives with her but he currently is negative. He is no evidence of ascites no abdominal pain no concern for SBP at this time. Patient with liver and renal dysfunction require higher level of care not able to keep at this hospital. Dr. Cantu, hospitalist at [facility] it updated patient's symptoms test results agrees to accept but no bed available On many list including Located Within [facility]. Awaiting bed availability Dr tidwell: overnight 07/30-07/31: Received turned over. Reviewed patient's history and physical and workup up to this point. Overnight patient has had no signs of alcohol withdrawal. He is alert and oriented. No chest pain. No abdominal pain. He is received fluids. Repeat labs this morning shows improvement of electrolytes. Improvement of kidney function. His leukocytosis has resolved. He is tolerating oral intake. He is producing urine. When I re-evaluated this morning he states he feels much better than what he has over the past couple days. I went over his workup up to this point. We discussed his elevated liver enzymes which I suspect are related to his alcohol use. We discussed his kidney function. Patient does seem to be somewhat hesitant about a transfer for specific alcohol detox/rehab. We discussed that his kidney function was not back to the point where I would be comfortable discharging him home but I also feel now that a transfer is not necessarily needed. Pt to be is to continue to hydrate him this morning. Most likely rechecking his labs later this morning. Will have him see social work later today. At that point decision made for admission and continued observation versus discharge home. Care turned back over to Dr. Nolan to continue to observe and disposition. 07/31/[address] Nolan patient signed out to me by Dr. Tidwell I have seen evaluated patient myself. Overall sitting up eating breakfast feels significantly better. Blood work has improved. Creatinine is 2.75 this morning. He is still hyponatremic and hypochloremic. However potassium has improved. He reports that he has no longer dizzy and lightheaded. He states that he has really just not been able to keep anything down for more than a week. He has not even attempted alcohol. He does not seem to be going through alcohol withdrawal. He has not required anymore phenobarb or Valium. He has been on multiple list for transfer but overall improvement no longer requires transfer. Dr. Burt accepts patient <Harpal Tidwell, DO - Last Filed: 07/31/23 17:57> Lab Data Labs: Lab Results 07/30/23 07/30/23 07/30/23 Range/Units 12:10 12:30 14:30 WBC 15.8 H (4.5-11.0) X10^3/uL RBC 5.22 (4.5-5.9) X10^6/uL Hgb 18.1 H (13.5-17.5) g/dL Hct 50.8 (41-53) % MCV 97.2 (80-100) fL MCH 34.7 H (26-34) PG MCHC 35.7 (30-36) % RDW 14.4 (11.6-14.8) % Plt Count 138 L (150-400) X10^3/uL Neut % (Auto) Not Reportable Lymph % (Auto) Not Reportable Monona % (Auto) Not Reportable Eos % (Auto) Not Reportable Baso % (Auto) Not Reportable Neut # (Auto) (6606-9235) /uL Lymph # (Auto) Not Reportable Monona # (Auto) Not Reportable Eos # (Auto) (0-450) /uL Baso # (Auto) Not Reportable Total Counted 100 Seg Neutrophils % 74.0 H (38-70) % Band Neutrophils % 5.0 (3-7) % Lymphocytes % (Manual) 6.0 L (25-45) % Monocytes % (Manual) 14.0 H (2-11) % Myelocytes % 1.0 H (-0) % Neutrophils # (Manual) 90400 H (4492-8290) /uL Plt Morphology Comment RBC Morphology See below Anisocytosis 1+ H PT 13.5 H (9.4-12.5) SECONDS INR 1.2 (0.9-1.3) APTT 25 L (25.1-36.5) SECONDS Sodium 125 L 124 L (137-145) mmol/L Potassium 2.7 L* 2.5 L* (3.4-5.1) mmol/L Chloride 52 L* 60 L* (98-107) mmol/L Carbon Dioxide 40 H* 40 H* (22-32) mmol/L BUN 101 H 99 H (9-20) mg/dL Creatinine 3.98 H 3.35 H (0.66-1.25) mg/dL Estimated GFR 20 L 24 L (>60) mL/min BUN/Creatinine Ratio 25.4 H 29.6 H (6-22) Glucose 100 91 (70-100) mg/dL Lactate 3.7 H (0.7-2.1) mmol/L Calcium 9.1 7.8 L (8.4-10.2) mg/dL Magnesium 1.1 L (1.6-2.3) mg/dL Total Bilirubin 4.4 H 3.9 H (0.2-1.3) mg/dL AST 389 H 303 H (17-59) IU/L ALT 304 H 249 H (<50) IU/L Alkaline Phosphatase 108 89 (38-126) U/L Total Creatine Kinase 142 (55-170) U/L Total Protein 10.7 H 8.8 H (6.3-8.2) g/dL Albumin 5.4 H 4.8 (3.5-5.0) g/dL Globulin 5.3 H 4.0 (1.7-4.1) g/dL Albumin/Globulin Ratio 1.0 1.2 (1.0-2.8) Lipase 127 (23-300) U/L Urine Color Urine Appearance Urine pH (4.5-8.0) Ur Specific Buchanan (1.000-1.035) Urine Protein (Negative) Urine Glucose (UA) (Negative) g/dL Urine Ketones (NEGATIVE) Urine Occult Blood (Negative) Urine Nitrate (Negative) Urine Bilirubin (NEGATIVE) Ur Bilirubin Confirm Urine Urobilinogen (0.2) E.U./dL Ur Leukocyte Esterase (NEGATIVE) Urine RBC (0-5/HPF) Urine WBC (0-5/HPF) Ur Squamous Epith Cells (0-5/HPF) Urine Bacteria (None) Hyaline Casts (None) Ur Culture Indicated? Ethyl Alcohol < 10 ( - 10) mg/dL SARS-CoV-2 (PCR) Negative (Negative) 07/30/23 07/30/23 07/30/23 Range/Units 15:28 17:35 17:40 WBC 16.1 H (4.5-11.0) X10^3/uL RBC 4.33 L (4.5-5.9) X10^6/uL Hgb 15.0 (13.5-17.5) g/dL Hct 42.2 (41-53) % MCV 97.3 (80-100) fL MCH 34.7 H (26-34) PG MCHC 35.7 (30-36) % RDW 14.2 (11.6-14.8) % Plt Count 128 L (150-400) X10^3/uL Neut % (Auto) 77.1 H Lymph % (Auto) 11.5 L Monona % (Auto) 10.9 Eos % (Auto) 0.2 L Baso % (Auto) 0.3 Neut # (Auto) 06205 H (9453-9432) /uL Lymph # (Auto) 1800 [place]ona # (Auto) 1800 H Eos # (Auto) 0 (0-450) /uL Baso # (Auto) 0 Total Counted Seg Neutrophils % (38-70) % Band Neutrophils % (3-7) % Lymphocytes % (Manual) (25-45) % Monocytes % (Manual) (2-11) % Myelocytes % (-0) % Neutrophils # (Manual) (7380-4157) /uL Plt Morphology Comment RBC Morphology Anisocytosis PT (9.4-12.5) SECONDS INR (0.9-1.3) APTT (25.1-36.5) SECONDS Sodium (137-145) mmol/L Potassium (3.4-5.1) mmol/L Chloride (98-107) mmol/L Carbon Dioxide (22-32) mmol/L BUN (9-20) mg/dL Creatinine (0.66-1.25) mg/dL Estimated GFR (>60) mL/min BUN/Creatinine Ratio (6-22) Glucose (70-100) mg/dL Lactate 1.3 (0.7-2.1) mmol/L Calcium (8.4-10.2) mg/dL Magnesium (1.6-2.3) mg/dL Total Bilirubin (0.2-1.3) mg/dL AST (17-59) IU/L ALT (<50) IU/L Alkaline Phosphatase (38-126) U/L Total Creatine Kinase (55-170) U/L Total Protein (6.3-8.2) g/dL Albumin (3.5-5.0) g/dL Globulin (1.7-4.1) g/dL Albumin/Globulin Ratio (1.0-2.8) Lipase (23-300) U/L Urine Color Dark yellow Urine Appearance Cloudy Urine pH 5.0 (4.5-8.0) Ur Specific Buchanan >=1.030 H (1.000-1.035) Urine Protein 2+ H (Negative) Urine Glucose (UA) Negative (Negative) g/dL Urine Ketones 1+ H (NEGATIVE) Urine Occult Blood 3+ H (Negative) Urine Nitrate Negative (Negative) Urine Bilirubin 2+ H (NEGATIVE) Ur Bilirubin Confirm Cancelled Urine Urobilinogen 1.0 (0.2) E.U./dL Ur Leukocyte Esterase Trace H (NEGATIVE) Urine RBC 5-10/hpf H (0-5/HPF) Urine WBC 5-10/hpf H (0-5/HPF) Ur Squamous Epith Cells 1-5 /hpf (0-5/HPF) Urine Bacteria Few (2-10) H (None) Hyaline Casts 1-5/lpf (None) Ur Culture Indicated? Specimen cultured Ethyl Alcohol ( - 10) mg/dL SARS-CoV-2 (PCR) (Negative) 12/25/23 12/26/23 Range/Units 18:25 04:10 WBC 9.6 (4.5-11.0) X10^3/uL RBC 4.03 L (4.5-5.9) X10^6/uL Hgb 14.0 (13.5-17.5) g/dL Hct 39.4 L (41-53) % MCV 97.9 (80-100) fL MCH 34.9 H (26-34) PG MCHC 35.6 (30-36) % RDW 14.0 (11.6-14.8) % Plt Count 77 L (150-400) X10^3/uL Neut % (Auto) 72.1 Lymph % (Auto) 12.6 L Monona % (Auto) 13.8 Eos % (Auto) 0.7 L Baso % (Auto) 0.8 Neut # (Auto) 6900 (9504-7823) /uL Lymph # (Auto) 1200 [place]ona # (Auto) 1300 H Eos # (Auto) 100 (0-450) /uL Baso # (Auto) 100 Total Counted Seg Neutrophils % (38-70) % Band Neutrophils % (3-7) % Lymphocytes % (Manual) (25-45) % Monocytes % (Manual) (2-11) % Myelocytes % (-0) % Neutrophils # (Manual) (2336-8747) /uL Plt Morphology Comment RBC Morphology Anisocytosis PT (9.4-12.5) SECONDS INR (0.9-1.3) APTT (25.1-36.5) SECONDS Sodium 120 L 125 L (137-145) mmol/L Potassium 3.2 L 3.6 (3.4-5.1) mmol/L Chloride 65 L* 73 L* (98-107) mmol/L Carbon Dioxide 37 H 40 H* (22-32) mmol/L BUN 90 H 75 H (9-20) mg/dL Creatinine 3.26 H 2.75 H (0.66-1.25) mg/dL Estimated GFR 25 L 31 L (>60) mL/min BUN/Creatinine Ratio 27.6 H 27.3 H (6-22) Glucose 102 H 87 (70-100) mg/dL Lactate (0.7-2.1) mmol/L Calcium 7.5 L 7.7 L (8.4-10.2) mg/dL Magnesium 3.0 H (1.6-2.3) mg/dL Total Bilirubin 3.6 H 3.6 H (0.2-1.3) mg/dL AST 240 H 168 H (17-59) IU/L ALT 218 H 183 H (<50) IU/L Alkaline Phosphatase 83 71 (38-126) U/L Total Creatine Kinase (55-170) U/L Total Protein 7.7 7.4 (6.3-8.2) g/dL Albumin 4.3 4.0 (3.5-5.0) g/dL Globulin 3.4 3.4 (1.7-4.1) g/dL Albumin/Globulin Ratio 1.3 1.2 (1.0-2.8) Lipase 156 (23-300) U/L Urine Color Urine Appearance Urine pH (4.5-8.0) Ur Specific Buchanan (1.000-1.035) Urine Protein (Negative) Urine Glucose (UA) (Negative) g/dL Urine Ketones (NEGATIVE) Urine Occult Blood (Negative) Urine Nitrate (Negative) Urine Bilirubin (NEGATIVE) Ur Bilirubin Confirm Urine Urobilinogen (0.2) E.U./dL Ur Leukocyte Esterase (NEGATIVE) Urine RBC (0-5/HPF) Urine WBC (0-5/HPF) Ur Squamous Epith Cells (0-5/HPF) Urine Bacteria (None) Hyaline Casts (None) Ur Culture Indicated? Ethyl Alcohol ( - 10) mg/dL SARS-CoV-2 (PCR) (Negative) Point of Care Testing Glucose POC 102 MDM Narrative Medical decision making narrative: MDM CC: Shaking withdrawal symptoms Complicating co-morbidities: Alcohol use Corroborating data: Previous visit Data collected from: [ ] Medical records reviewed: [ ] Differential considered: [ ] Exam documented above, pertinent findings include: [ ] Lab Test results independently reviewed as above. Pertinent findings: WBC 15.8, hemoglobin 18.1, hematocrit 50.8, PT 13.5, INR 1.2, APTT 2, sodium 125, potassium 2.7, chloride 52, carbon dioxide 40, BUN 101, crit 3.9, lactate 3.7, bilirubin 4.4, AST 389, ALT 304, lipase 127. Repeat electrolyte panel creatinine improved to 3.35 after 1 L of fluid sodium remains low at 124, potassium has remained low at 2.5 without repletion yet chloride improved to 60 and lactate improved to 1.3. Bilirubin improved to 3.9, AST improved 09/08/2002, ALT improved to 249 Independently reviewed EKG as above Imaging studies independently reviewed: Cholelithiasis without evidence of cholecystitis Consultations: [ ] Treatments: Valium phenobarbital, IV fluids Protonix Re-evaluations: [ ] Discussion: Patient presents today with shaking concerning for alcohol withdrawal cause. Initially given phenobarbital IM and Valium. Took a long time to convince him for blood work and an IV. Blood work reveals significant electrolyte abnormalities with elevated creatinine. Concern is for dehydration with decreased intake and vomiting. However he is significant elevation in liver enzymes and bilirubin concern for hepatorenal syndrome. Renal function is improving with IV fluids. His abdomen is relatively soft and nontender. CT and ultrasound do shoe show cholelithiasis without evidence of cholecystitis. No renal abnormality noted on CT. He continues to require medication for delirium tremens. He is afebrile. Apparently his grandmother tested positive for COVID he lives with her but he currently is negative. He is no evidence of ascites no abdominal pain no concern for SBP at this time. Patient with liver and renal dysfunction require higher level of care not able to keep at this hospital. Dr tidwell: overnight 07/30-07/31: Received turned over. Reviewed patient's history and physical and workup up to this point. Overnight patient has had no signs of alcohol withdrawal. He is alert and oriented. No chest pain. No abdominal pain. He is received fluids. Repeat labs this morning shows improvement of electrolytes. Improvement of kidney function. His leukocytosis has resolved. He is tolerating oral intake. He is producing urine. When I re-evaluated this morning he states he feels much better than what he has over the past couple days. I went over his workup up to this point. We discussed his elevated liver enzymes which I suspect are related to his alcohol use. We discussed his kidney function. Patient does seem to be somewhat hesitant about a transfer for specific alcohol detox/rehab. We discussed that his kidney function was not back to the point where I would be comfortable discharging him home but I also feel now that a transfer is not necessarily needed. Pt to be is to continue to hydrate him this morning. Most likely rechecking his labs later this morning. Will have him see social work later today. At that point decision made for admission and continued observation versus discharge home. Care turned back over to Dr. Nolan to continue to observe and disposition. Critical Care Time <Delma Nolan, DO - Last Filed: 07/31/23 09:20> Critical Care Time Critical Care Time: Yes Total Critical Care Time: 55 Attestation: The high probability of a clinically significant, sudden or life threatening deterioration of the [cardiovascular] system(s) required my full and direct attention, intervention and personal management. The aggregate critical care time was 55 minutes. This time is in addition to time spent performing reported procedures but includes the following: [x] Data Review and interpretation [x] Patient assessment and monitoring of vital signs [x] Documentation [x] Medication orders and management Discharge Plan Departure Patient Disposition: Admitted As Inpatient Clinical Impression: Acute dehydration, Hypomagnesemia, PRIMO (acute kidney injury), Alcoholic cirrhosis, Acute hyponatremia, Acute hypokalemia, Hypochloremia Admit Date/Time: 07/31/23 08:28 Admit Provider: Harley Burt
[2023-07-30] MEDS: ONDANSETRON 4 MG ODT SL (10:35)
[2023-07-30] MEDS: PHENobarbital 65 MG/ML VIAL 260 MG IM (10:35)
[2023-07-30] MEDS: diazePAM 5 MG TABLET 10 MG PO (11:32)
[2023-07-30] MEDS: SODIUM CHLORIDE 0.9% 1,000 ML 1000 ML IV (12:26)
[2023-07-30 13:01] LABS: Alanine Aminotransferase 304 IU/L (<50); Albumin 5.4 g/dL (3.5-5.0); Alkaline Phosphatase 108 U/L (38-126); Aspartate Aminotransferase 389 IU/L (17-59); BUN Creatinine Ratio 25.4 (6-22); Bilirubin Total 4.4 mg/dL (0.2-1.3); Blood Urea Nitrogen 101 mg/dL (9-20); Calcium 9.1 mg/dL (8.4-10.2); Estimated Glomerular Filt Rate 20 mL/min (>60); Ethanol (ETOH) < 10 mg/dL; Globulin 5.3 g/dL (1.7-4.1); Glucose 100 mg/dL (70-100); HEMOLYSIS 16 (0-50); Lipase 127 U/L (23-300); Sodium 125 mmol/L (137-145); Total Protein 10.7 g/dL (6.3-8.2)
[2023-07-30 13:12] LABS: Chloride 52 mmol/L (98-107); Potassium 2.7 mmol/L (3.4-5.1)
[2023-07-30 13:14] LABS: Carbon Dioxide 40 mmol/L (22-32)
[2023-07-30 13:15] LABS: Hematocrit 50.8 % (41-53); Hemoglobin 18.1 g/dL (13.5-17.5); Mean Corpuscular HGB Conc 35.7 % (30-36); Mean Corpuscular Hemoglobin 34.7 PG (26-34); Mean Corpuscular Volume 97.2 fL (80-100); Platelet Count 138 X10^3/uL (150-400); Red Blood Cell Count 5.22 X10^6/uL (4.5-5.9); Red Cell Distribution Width 14.4 % (11.6-14.8); White Blood Cell Count 15.8 X10^3/uL (4.5-11.0)
[2023-07-30 13:18] LABS: Add Manual Diff / Slide Review YES
[2023-07-30 13:30] LABS: Neutrophils Absolute Manual 12482 /uL (3000-5900); Total Cells Counted 100
[2023-07-30 13:31] LABS: Anisocytosis 1+
[2023-07-30] MEDS: POTASSIUM CHLORIDE IN WATER 10 MEQ/100 ML PIGGYBACK 100 MEQ IV ×6 (13:55→19:26)
[2023-07-30 14:03] LABS: Lactate (Lactic Acid) 3.7 mmol/L (0.7-2.1)
--- NOTE | 2023-07-30 14:18 | DI.CT.S_ITS ---
PROCEDURE: CT ABDOMEN PELVIS WO CON INDICATIONS: liver and renal failure TECHNIQUE: Noncontrast 5 mm thick sections acquired from the diaphragms to the symphysis. 5 mm coronal and sagittal reformats were then performed. For radiation dose reduction, the following was used: automated exposure control, adjustment of mA and/or kV according to patient size. COMPARISON: None. FINDINGS: Image quality: Diagnostic. Lower Chest: No significant findings. ABDOMEN: Liver: No contour deforming mass. Hepatic steatosis. Gallbladder: Cholelithiasis without wall thickening or adjacent fat stranding to suggest acute cholecystitis. Biliary ducts: No biliary dilation. Pancreas: No ductal dilation. Spleen: Size is within normal limits. Adrenal Glands: No adrenal nodules. Kidneys and Ureters: No hydronephrosis. No solid mass. No complex renal cystic lesion which requires follow up. lobulation. Stomach and Bowel: Normal colonic caliber, without significant wall thickening. Peritoneum: No abnormal intraperitoneal fluid. No free air. Ventral Wall: No hernia. Abdominal Nodes: No retroperitoneal or mesenteric adenopathy by size criteria. Vessels: Aorta and inferior vena cava are normal in size. PELVIS: Pelvic Organs: Unremarkable. Bladder: Unremarkable. Pelvic Nodes: No enlarged lymph nodes. Miscellaneous: No inguinal hernias are seen. Bones: No aggressive osseous abnormality. IMPRESSION: Cholelithiasis without wall thickening or adjacent fat stranding to suggest acute cholecystitis. Hepatic steatosis. No renal abnormality. Dictated by: Paul Tay M.D. on 07/30/2023 at 14:46 Approved by: Paul Tay M.D. on 07/30/2023 at 14:48
[2023-07-30 14:19] LABS: Alanine Aminotransferase 249 IU/L (<50); Albumin 4.8 g/dL (3.5-5.0); Albumin Globulin Ratio 1.2 (1.0-2.8); Alkaline Phosphatase 89 U/L (38-126); Aspartate Aminotransferase 303 IU/L (17-59); BUN Creatinine Ratio 29.6 (6-22); Bilirubin Total 3.9 mg/dL (0.2-1.3); Blood Urea Nitrogen 99 mg/dL (9-20); Calcium 7.8 mg/dL (8.4-10.2); Creatine Kinase 142 U/L (55-170); Estimated Glomerular Filt Rate 24 mL/min (>60); Glucose 91 mg/dL (70-100); Magnesium 1.1 mg/dL (1.6-2.3); Sodium 124 mmol/L (137-145); Total Protein 8.8 g/dL (6.3-8.2)
[2023-07-30 14:25] LABS: HEMOLYSIS 33 (0-50)
[2023-07-30 14:26] LABS: Carbon Dioxide 40 mmol/L (22-32); Chloride 60 mmol/L (98-107); Potassium 2.5 mmol/L (3.4-5.1)
[2023-07-30 14:43] LABS: INR 1.2 (0.9-1.3); Prothrombin Time 13.5 SECONDS (9.4-12.5)
[2023-07-30 14:46] LABS: PTT Partial Thromboplastin Tim 25 SECONDS (25.1-36.5)
[2023-07-30] MEDS: SODIUM CHLORIDE 0.9% 1,000 ML 150 ML IV ×2 (14:55→20:18)
[2023-07-30 15:01] LABS: COVID19 -Nasal RAPID Negative (Negative)
[2023-07-30] MEDS: MAGNESIUM SULFATE 4 GM/100 ML PIGGYBACK IV (15:09)
--- NOTE | 2023-07-30 15:12 | DI.US.S_ITS ---
PROCEDURE: US ABDOMEN LIMITED INDICATIONS: ruq high bilirubin, concern for cholelithiasis TECHNIQUE: Real-time scanning was performed of the abdominal and retroperitoneal organs, with image documentation. COMPARISON: None. FINDINGS: Liver: Increased liver echogenicity. Mild posterior attenuation. Gallbladder: Cholelithiasis. No wall thickening. No pericholecystic edema. Negative sonographic Viveros's sign. Biliary ducts: Intrahepatic bile ducts are non-dilated. Extrahepatic bile duct caliber measures 4 mm. Normal is 6-7 mm or less in diameter, or 10 mm or less post-cholecystectomy. Pancreas: Not visualized due to overlying bowel gas. IMPRESSION: Cholelithiasis without sonographic evidence of acute cholecystitis. Dictated by: Paul Tay M.D. on 07/30/2023 at 16:07 Approved by: Paul Tay M.D. on 07/30/2023 at 16:08
[2023-07-30] MEDS: PANTOPRAZOLE 40 MG VIAL IV (15:18)
[2023-07-30 15:42] LABS: Reflexed Lactate in 2 Hours Y
[2023-07-30 15:51] LABS: Lactate 2HR (Lactic Acid Rflx) 1.3 mmol/L (0.7-2.1)
[2023-07-30] MEDS: diazePAM 10 MG/2 ML SYRINGE 2 MG IV (16:04)
--- NOTE | 2023-07-30 16:14 | DI.RAD.S_ITS ---
PROCEDURE: XR CHEST 1V INDICATIONS: desat TECHNIQUE: One view of the chest was acquired. COMPARISON: None. FINDINGS: Surgical changes and devices: None. Lungs and pleura: Lungs are clear. No pleural effusions or pneumothorax. Mediastinum: Mediastinal contours appear normal. Heart size is normal. Bones and chest wall: No suspicious bony lesions. Overlying soft tissues appear unremarkable. IMPRESSION: No acute cardiopulmonary abnormality is seen. Dictated by: Paul Tay M.D. on 07/30/2023 at 16:45 Approved by: Paul Tay M.D. on 07/30/2023 at 16:47
[2023-07-30 17:50] LABS: Appearance Urine UA CLOUDY; Glucose Urine UA NEGATIVE (Negative); Ketones Urine UA 1+ (NEGATIVE); Leukocyte Esterase Urine UA TRACE (NEGATIVE); Nitrite Urine UA NEGATIVE (Negative); Occult Blood Urine UA 3+ (Negative); Protein Urine UA 2+ (Negative); Specific Gravity Urine UA >=1.030 (1.000-1.035)
[2023-07-30 17:53] LABS: Add Manual Diff / Slide Review NO; Basophils Absolute Auto 0 /uL (0-100); Basophils Percent Auto 0.3 % (0-2); Eosinophils Absolute Auto 0 /uL (0-450); Eosinophils Percent Auto 0.2 % (2-4); Hematocrit 42.2 % (41-53); Lymphocytes Absolute Auto 1800 /uL (1100-4500); Lymphocytes Percent Auto 11.5 % (25-40); Mean Corpuscular HGB Conc 35.7 % (30-36); Mean Corpuscular Hemoglobin 34.7 PG (26-34); Mean Corpuscular Volume 97.3 fL (80-100); Monocytes Absolute Auto 1800 /uL (0-900); Monocytes Percent Auto 10.9 % (3-14); Neutrophils Absolute Auto 12400 /uL (1500-7000); Neutrophils Percent Auto 77.1 % (50-75); Platelet Count 128 X10^3/uL (150-400); Red Blood Cell Count 4.33 X10^6/uL (4.5-5.9); Red Cell Distribution Width 14.2 % (11.6-14.8); White Blood Cell Count 16.1 X10^3/uL (4.5-11.0)
[2023-07-30 17:55] LABS: Bilirubin Urine UA 2+ (NEGATIVE); Color Urine UA Dark Yellow
[2023-07-30 18:01] LABS: Bacteria Urine Few (2-10); Culture Indicated Urine Specimen Cultured; Hyaline Casts Urine 1-5/LPF; RBC Urine 5-10/HPF (0-5/HPF); Squamous Epithelial Cell Urine 1-5 /HPF (0-5/HPF); WBC Urine 5-10/HPF (0-5/HPF)
[2023-07-30] MEDS: THIAMINE 100 MG in SODIUM CHLORIDE 0.9% 100 ML 404 MG IV (18:17)
[2023-07-30] MEDS: PIPERACILLIN/TAZO 4.5 GM in SODIUM CHLORIDE 0.9% 100 ML IV (18:21)
[2023-07-30 19:03] LABS: Alanine Aminotransferase 218 IU/L (<50); Albumin 4.3 g/dL (3.5-5.0); Albumin Globulin Ratio 1.3 (1.0-2.8); Alkaline Phosphatase 83 U/L (38-126); Aspartate Aminotransferase 240 IU/L (17-59); BUN Creatinine Ratio 27.6 (6-22); Bilirubin Total 3.6 mg/dL (0.2-1.3); Blood Urea Nitrogen 90 mg/dL (9-20); Calcium 7.5 mg/dL (8.4-10.2); Estimated Glomerular Filt Rate 25 mL/min (>60); Globulin 3.4 g/dL (1.7-4.1); Glucose 102 mg/dL (70-100); Potassium 3.2 mmol/L (3.4-5.1); Sodium 120 mmol/L (137-145); Total Protein 7.7 g/dL (6.3-8.2)
[2023-07-30 19:09] LABS: Carbon Dioxide 37 mmol/L (22-32); HEMOLYSIS < 15 (0-50)
[2023-07-30 19:10] LABS: Chloride 65 mmol/L (98-107)
--- NOTE | 2023-07-30 20:23 | PC.NURSE ---
Addendum entered by Tamara Zuniga CNA 07/31/23 02:20: BANDAR note: [facility]/ [place]: 0213 spoke to Isabell. Currently have no med-surg beds. Patient is on waitlist. [facility]: 0214 Sarah. Currently have no beds. Patient on their waitlist. [facility]: 0218 currently have no beds and lots boarding in their ED. Call in the morning, they may have beds open. Let supercharger mechanic Kelly and Doctor Diann know. Original Note: BUTTER GRADER note: Spoke to Darnell at [facility]. Patient has been accepted by [facility], but I was looking at a bed update. Darnell said it would be tomorrow at the earliest. Updated animal caretaker Kelly at 2019
[2023-07-31] VITALS (24 sets, daily range): BP systolic 105–134; BP diastolic 49–85; PULSE 70–94; RESP 12–39; TEMP 37–37.1; O2SAT 95–100; BMI 22.1
[2023-07-31] MEDS: SODIUM CHLORIDE 0.9% 1,000 ML 150 ML IV (02:22)
[2023-07-31 04:28] LABS: Add Manual Diff / Slide Review NO; Basophils Absolute Auto 100 /uL (0-100); Basophils Percent Auto 0.8 % (0-2); Eosinophils Absolute Auto 100 /uL (0-450); Eosinophils Percent Auto 0.7 % (2-4); Hematocrit 39.4 % (41-53); Lymphocytes Absolute Auto 1200 /uL (1100-4500); Lymphocytes Percent Auto 12.6 % (25-40); Mean Corpuscular HGB Conc 35.6 % (30-36); Mean Corpuscular Hemoglobin 34.9 PG (26-34); Mean Corpuscular Volume 97.9 fL (80-100); Monocytes Absolute Auto 1300 /uL (0-900); Monocytes Percent Auto 13.8 % (3-14); Neutrophils Absolute Auto 6900 /uL (1500-7000); Neutrophils Percent Auto 72.1 % (50-75); Platelet Count 77 X10^3/uL (150-400); Red Blood Cell Count 4.03 X10^6/uL (4.5-5.9); White Blood Cell Count 9.6 X10^3/uL (4.5-11.0)
[2023-07-31 04:38] LABS: Alanine Aminotransferase 183 IU/L (<50); Albumin Globulin Ratio 1.2 (1.0-2.8); Alkaline Phosphatase 71 U/L (38-126); Aspartate Aminotransferase 168 IU/L (17-59); BUN Creatinine Ratio 27.3 (6-22); Bilirubin Total 3.6 mg/dL (0.2-1.3); Blood Urea Nitrogen 75 mg/dL (9-20); Calcium 7.7 mg/dL (8.4-10.2); Estimated Glomerular Filt Rate 31 mL/min (>60); Globulin 3.4 g/dL (1.7-4.1); Glucose 87 mg/dL (70-100); HEMOLYSIS < 15 (0-50); Lipase 156 U/L (23-300); Potassium 3.6 mmol/L (3.4-5.1); Sodium 125 mmol/L (137-145); Total Protein 7.4 g/dL (6.3-8.2)
[2023-07-31 04:47] LABS: Chloride 73 mmol/L (98-107)
[2023-07-31 04:48] LABS: Carbon Dioxide 40 mmol/L (22-32)
--- NOTE | 2023-07-31 09:07 | PC.NURSE ---
pt a&ox4. denies n/v. pt states that he feels a little bit better. pt given breakfast tray from dietary. VS WNL. no tremors, confusion or sx of etoh withdrawal present at this time.
[2023-07-31] MEDS: MULTIVITAMIN 1 TABLET 1 TAB PO (10:16)
[2023-07-31] MEDS: FOLIC ACID 1 MG TABLET PO (10:16)
[2023-07-31] MEDS: SODIUM CHLORIDE 0.9% 1,000 ML 100 ML IV (10:16)
[2023-07-31] MEDS: THIAMINE 100 MG TABLET PO (10:16)
--- NOTE | 2023-07-31 10:56 | PC.NURSE ---
Addendum entered by Jannette Rojas R.N. 07/31/23 16:44: Pt stable throughout day. VSS. No nausea/vomitting, repeat lab values viewed by provider. Pt met discharge criteria. Original Note: Admit note: pt arrived to floor A+O, VSS, Sinus rhythm, CIWA 4. Pt resting comfortably in room, seizure pads in place.
--- NOTE | 2023-07-31 13:00 | P.HP_ITS ---
History of Present Illness History of Present Illness Date Patient Seen: 07/31/23 Time Patient Seen: 14:00 Chief complaint: states he is going to have a seizure Narrative: This is a 28 year old male who presented to the emergency room with muscle stiffness. He drinks about a gallon of vodka over a week typically, but starting one week ago he had abdominal pain and persistent nausea and vomiting. He was unable to keep water down. He presented to the hospital yesterday with feeling muscle and hand tightness which he has felt prior to previous alcohol withdrawal seizures. He typically experiences this however 2-3 days after stopping drinking, with this episode coming much later. He denies any fever, chills, chest pain, or diarrhea. He reports no rashes, cough, dyspnea. In the emergency room, labs were notable for tbili of 4.4 initially with AST 389,ALT 304. Na was 125 and Cr was 3.98. Mg was also 1.1. ER was attempting to transfer for possible hepatorenal syndrome, however with only fluids his labs have continued to improve, and he is now tolerating a diet and feels much improved strength kwon. He was then admitted upstairs for continued monitoring and treatment of PRIMO, hyponatremia. [facility] Medical History Stress at work Hearing decreased Eczema Depression Sinus headache Tinnitus History of alcohol abuse Adult ADHD (attention deficit hyperactivity disorder) Seizure-like activity Seizure (~2015) Family History Mother [id number] deficiency Father Diabetes mellitus Social History household members: other Smoking Status: Never smoker Meds Home Medications and Allergies Home Medications Medication Instructions Recorded Confirmed Type No Known Home Medications 07/30/23 07/30/23 History Allergies Allergy/AdvReac Type Severity Reaction Status Date / Time cat dander [CAT DANDER] Allergy Mild nose runs, Verified 07/30/23 14:15 eyes water Review of Systems Review of Systems Narrative: All other systems reviewed with the patient and are negative unless otherwise stated. Exam Vital Signs (past 8 hours): - 07/31/23 05:30 07/31/23 05:30 07/31/23 06:00 Temperature Pulse Rate 89 82 Respiratory Rate 23 12 Blood Pressure 115/57 L Pulse Oximetry 98 97 Oxygen Delivery Method 07/31/23 06:01 07/31/23 06:01 07/31/23 06:30 Temperature Pulse Rate 84 94 H Respiratory Rate 26 H 26 H Blood Pressure 106/49 L 134/77 Pulse Oximetry 96 100 Oxygen Delivery Method 07/31/23 06:31 07/31/23 06:31 07/31/23 07:00 Temperature Pulse Rate 94 H 87 Respiratory Rate 34 H 20 Blood Pressure 134/77 Pulse Oximetry 99 98 Oxygen Delivery Method 07/31/23 07:00 07/31/23 07:30 07/31/23 07:30 Temperature Pulse Rate 86 Respiratory Rate 23 Blood Pressure 131/74 124/75 Pulse Oximetry 99 Oxygen Delivery Method 07/31/23 08:00 07/31/23 08:00 07/31/23 08:48 Temperature Pulse Rate 84 Respiratory Rate 13 Blood Pressure 133/83 Pulse Oximetry 98 Oxygen Delivery Method Room Air 07/31/23 09:38 07/31/23 10:04 Temperature 98.6 F Pulse Rate 91 H Respiratory Rate 16 Blood Pressure 122/78 Pulse Oximetry 98 98 Oxygen Delivery Method Room Air Oxygen Delivery Method Room Air Oxygen Flow Rate 1 Narrative Exam Narrative: General:? Patient is well developed and well nourished, in no distress at this time. HEENT:? Normocephalic, atraumatic, extraocular muscles intact, oral pharynx is clear and mucous membranes are moist. Neck: supple and symmetric, trachea is midline, no cervical adenopathy. Negative for JVD Chest:? Normal AP diameter and contour without kyphoscoliosis, no tachypnea, equal chest rise bilaterally. Lungs:? CTA b/l no wheezing rhonchi or rales. Cardio:?RRR no m/r/g. Abdomen: S NT ND. No CVA tenderness. Musculoskeletal:? Muscle strength and tone are equal within normal limits, no deformity. Extremities: No edema or joint effusions. No cyanosis or clubbing. Skin:? Pale,? Warm to touch,dry and intact without rashes, ulcerations or petechiae.? Neuro:? Alert and orientated x3,? sensation to touch intact in all extremities, no gross deficits noted of cranial nerves. Psych:? Patient has a well-kept appearance, appropriate affect, mental status attitude thought context and judgment are appropriate for age. Objective Labs 07/31/23 04:10 07/31/23 04:10 Labs: Laboratory Results - last 24 hr 07/30/23 07/30/23 07/30/23 12:10 12:30 14:30 WBC 15.8 H RBC 5.22 Hgb 18.1 H Hct 50.8 MCV 97.2 MCH 34.7 H MCHC 35.7 RDW 14.4 Plt Count 138 L Neut % (Auto) Not Reportable Lymph % (Auto) Not Reportable [place] % (Auto) Not Reportable Eos % (Auto) Not Reportable Baso % (Auto) Not Reportable Neut # (Auto) Lymph # (Auto) Not Reportable [place] # (Auto) Not Reportable Eos # (Auto) Baso # (Auto) Not Reportable Total Counted 100 Seg Neutrophils % 74.0 H Band Neutrophils % 5.0 Lymphocytes % (Manual) 6.0 L Monocytes % (Manual) 14.0 H Myelocytes % 1.0 H Neutrophils # (Manual) 96300 H Plt Morphology Comment RBC Morphology See below Anisocytosis 1+ H PT 13.5 H INR 1.2 APTT 25 L Sodium 125 L 124 L Potassium 2.7 L* 2.5 L* Chloride 52 L* 60 L* Carbon Dioxide 40 H* 40 H* BUN 101 H 99 H Creatinine 3.98 H 3.35 H Estimated GFR 20 L 24 L BUN/Creatinine Ratio 25.4 H 29.6 H Glucose 100 91 Lactate 3.7 H Calcium 9.1 7.8 L Magnesium 1.1 L Total Bilirubin 4.4 H 3.9 H AST 389 H 303 H ALT 304 H 249 H Alkaline Phosphatase 108 89 Total Creatine Kinase 142 Total Protein 10.7 H 8.8 H Albumin 5.4 H 4.8 Globulin 5.3 H 4.0 Albumin/Globulin Ratio 1.0 1.2 Lipase 127 Urine Color Urine Appearance Urine pH Ur Specific [place] Urine Protein Urine Glucose (UA) Urine Ketones Urine Occult Blood Urine Nitrate Urine Bilirubin Ur Bilirubin Confirm Urine Urobilinogen Ur Leukocyte Esterase Urine RBC Urine WBC Ur Squamous Epith Cells Urine Bacteria Hyaline Casts Ur Culture Indicated? Ethyl Alcohol < 10 SARS-CoV-2 (PCR) Negative 07/30/23 07/30/23 07/30/23 15:28 17:35 17:40 WBC 16.1 H RBC 4.33 L Hgb 15.0 Hct 42.2 MCV 97.3 MCH 34.7 H MCHC 35.7 RDW 14.2 Plt Count 128 L Neut % (Auto) 77.1 H Lymph % (Auto) 11.5 L [place] % (Auto) 10.9 Eos % (Auto) 0.2 L Baso % (Auto) 0.3 Neut # (Auto) 62773 H Lymph # (Auto) 1800 [place] # (Auto) 1800 H Eos # (Auto) 0 Baso # (Auto) 0 Total Counted Seg Neutrophils % Band Neutrophils % Lymphocytes % (Manual) Monocytes % (Manual) Myelocytes % Neutrophils # (Manual) Plt Morphology Comment RBC Morphology Anisocytosis PT INR APTT Sodium Potassium Chloride Carbon Dioxide BUN Creatinine Estimated GFR BUN/Creatinine Ratio Glucose Lactate 1.3 Calcium Magnesium Total Bilirubin AST ALT Alkaline Phosphatase Total Creatine Kinase Total Protein Albumin Globulin Albumin/Globulin Ratio Lipase Urine Color Dark yellow Urine Appearance Cloudy Urine pH 5.0 Ur Specific [place] >=1.030 H Urine Protein 2+ H Urine Glucose (UA) Negative Urine Ketones 1+ H Urine Occult Blood 3+ H Urine Nitrate Negative Urine Bilirubin 2+ H Ur Bilirubin Confirm Cancelled Urine Urobilinogen 1.0 Ur Leukocyte Esterase Trace H Urine RBC 5-10/hpf H Urine WBC 5-10/hpf H Ur Squamous Epith Cells 1-5 /hpf Urine Bacteria Few (2-10) H Hyaline Casts 1-5/lpf Ur Culture Indicated? Specimen cultured Ethyl Alcohol SARS-CoV-2 (PCR) 07/30/23 07/31/23 18:25 04:10 WBC 9.6 RBC 4.03 L Hgb 14.0 Hct 39.4 L MCV 97.9 MCH 34.9 H MCHC 35.6 RDW 14.0 Plt Count 77 L Neut % (Auto) 72.1 Lymph % (Auto) 12.6 L [place] % (Auto) 13.8 Eos % (Auto) 0.7 L Baso % (Auto) 0.8 Neut # (Auto) 6900 Lymph # (Auto) 1200 [place] # (Auto) 1300 H Eos # (Auto) 100 Baso # (Auto) 100 Total Counted Seg Neutrophils % Band Neutrophils % Lymphocytes % (Manual) Monocytes % (Manual) Myelocytes % Neutrophils # (Manual) Plt Morphology Comment RBC Morphology Anisocytosis PT INR APTT Sodium 120 L 125 L Potassium 3.2 L 3.6 Chloride 65 L* 73 L* Carbon Dioxide 37 H 40 H* BUN 90 H 75 H Creatinine 3.26 H 2.75 H Estimated GFR 25 L 31 L BUN/Creatinine Ratio 27.6 H 27.3 H Glucose 102 H 87 Lactate Calcium 7.5 L 7.7 L Magnesium 3.0 H Total Bilirubin 3.6 H 3.6 H AST 240 H 168 H ALT 218 H 183 H Alkaline Phosphatase 83 71 Total Creatine Kinase Total Protein 7.7 7.4 Albumin 4.3 4.0 Globulin 3.4 3.4 Albumin/Globulin Ratio 1.3 1.2 Lipase 156 Urine Color Urine Appearance Urine pH Ur Specific [place] Urine Protein Urine Glucose (UA) Urine Ketones Urine Occult Blood Urine Nitrate Urine Bilirubin Ur Bilirubin Confirm Urine Urobilinogen Ur Leukocyte Esterase Urine RBC Urine WBC Ur Squamous Epith Cells Urine Bacteria Hyaline Casts Ur Culture Indicated? Ethyl Alcohol SARS-CoV-2 (PCR) Assessment & Plan Assessment & Plan narrative: 1. PRIMO - secondary to severe dehydration and decreased intake, probably due to pancreatitis initially but with delayed presentation - Cr has already improved from 3.98 to 2.75 today, continue to trend with BMP - continue IV fluids. 2. Alcoholic hepatitis, presumed pancreatitis with delayed presentation. - last drink was 1 week ago, suspect pancreatitis initially leading to nausea and vomiting. - he appears outside the area for withdrawal currently, with no current symptoms but will continue CIWA protocols. - suspect presentation and muscle stiffness likely were related to electrolyte abnormalities and not seizure activity. - [employer] consultation for alcohol resources. Patient does not currently appear motivated to stop drinking but is interested in resources as an outpatient. - there may be a passed biliary stone as well leading to presenting symptoms as AST/ALT elevations are not the typical 2:1 elevations usually seen with alcohol use. His bilirubin and AST/ALT are continuing to improve currently, and he has no abdominal symptoms. In this situation, will presume alcohol as the underlying etiology as imaging only shows cholelithiasis without cholecystitis or biliary dilatation. Though if symptoms recur consider referral for cholecystectomy. 3. Hyponatremia - continue IV fluids. Recheck BMP q12 for now. 4. Thrombocytopenia - likely related to EtOH use. - continue to follow with CBCs. 5. Electrolyte disturbances due to dehydration, including hypomagnesemia, hyponatremia, hypokalemia, and metabolic alkalosis. - repleted with 4g Mg - Mg now 3.0. - repleted potassium with improvement on today's labs - Sodium stable around 125, did drop to 120 though improved to 125 without changes. - continue to monitor sodium with frequent BMP, will check q12. Code: full DVT: hold given plt fall today I have utilized all available immediate resources to obtain, update, or review the patient's current medications. Dispo: admitted inpatient as his expected stay is beyond two midnights based on severity of PRIMO and electrolyte abnormalitis / symptoms on presentation. Discussed with the ER provider for above history and to formulate the assessment and plan. Discussed with [employer] as well. Quality VTE Deep Vein Thrombosis/Pulmonary Embolism Present on Admission: No
--- NOTE | 2023-07-31 15:06 | CM.SWNOTE ---
Roustabout [employer] Pusher Note ALL AROUND GEAR MACHINE OPERATOR received noticed from hospitalist that pt is likely to dc today and could benefit from [facility]/Alcohol treatment resources. Pt was not on official CM caseload due to arriving to the floor after cut off time. ALL AROUND GEAR MACHINE OPERATOR reviewed EMR. ALL AROUND GEAR MACHINE OPERATOR entered room and introduced self and role. Pt sitting up in bed. Pt reports interested in alcohol recovery resources. ALL AROUND GEAR MACHINE OPERATOR provided list of local MH/addiction centers, list of local and online AA meetings, as well as alcohol rehab facilities inpt and OP. Pt appreciative of information and reports being eager to explore his options. ALL AROUND GEAR MACHINE OPERATOR and pt had lengthy conversation about his alcohol usage increasing heavily since COVID lockdown when he lost his job. Pt reported main trigger for cravings are feelings of anxiety/depression. Pt is going to follow up with his PCP about anxiety/depression medication. Pt and this ALL AROUND GEAR MACHINE OPERATOR explored additional strategies for regulating anxiety, such as connecting with supports and running. Pt and this ALL AROUND GEAR MACHINE OPERATOR had a lengthy conversation about his supports, including his mom and some friends. Pt is eager to dc home and is eager to change. ALL AROUND GEAR MACHINE OPERATOR updated RN. Plan: pt to dc home with mom support when medically stable. Pt to follow up with OP provider as well as OP MH/addiction clinics. ALL AROUND GEAR MACHINE OPERATOR team will continue to follow as needed. YANIQUE Lujan
[2023-07-31 16:05] LABS: Alanine Aminotransferase 126 IU/L (<50); Albumin 3.9 g/dL (3.5-5.0); Albumin Globulin Ratio 1.3 (1.0-2.8); Alkaline Phosphatase 107 U/L (38-126); Aspartate Aminotransferase 150 IU/L (17-59); BUN Creatinine Ratio 31.4 (6-22); Bilirubin Total 2.2 mg/dL (0.2-1.3); Blood Urea Nitrogen 60 mg/dL (9-20); Calcium 7.9 mg/dL (8.4-10.2); Carbon Dioxide 34 mmol/L (22-32); Chloride 82 mmol/L (98-107); Estimated Glomerular Filt Rate 48 mL/min (>60); Globulin 3.1 g/dL (1.7-4.1); Glucose 94 mg/dL (70-100); HEMOLYSIS 25 (0-50); Potassium 3.4 mmol/L (3.4-5.1); Sodium 125 mmol/L (137-145)
--- NOTE | 2023-07-31 16:28 | P.DS_ITS ---
History of Present Illness History of Present Illness Date Patient Seen: 07/31/23 Time Patient Seen: 16:29 Chief complaint: states he is going to have a seizure Narrative: This is a 28 year old male who presented to the emergency room with muscle stiffness. He drinks about a gallon of vodka over a week typically, but starting one week ago he had abdominal pain and persistent nausea and vomiting. He was unable to keep water down. He presented to the hospital yesterday with feeling muscle and hand tightness which he has felt prior to previous alcohol withdrawal seizures. He typically experiences this however 2-3 days after stopping drinking, with this episode coming much later. He denies any fever, chills, chest pain, or diarrhea. He reports no rashes, cough, dyspnea. In the emergency room, labs were notable for tbili of 4.4 initially with AST 389,ALT 304. Na was 125 and Cr was 3.98. Mg was also 1.1. ER was attempting to transfer for possible hepatorenal syndrome, however with only fluids his labs have continued to improve, and he is now tolerating a diet and feels much improved strength kwon. He was then admitted upstairs for continued monitoring and treatment of PRIMO, hyponatremia. Discharge Providers Provider Date of admission: 07/31/23 08:28 Discharge Date: 07/31/23 Primary care physician: Brenden Wright DO Consults: 07/31/23 10:01 Consult to [facility] [place] - [employer] Routine Comment: Consult to [employer] Routine Comment: Discharge provider: Harley Burt DO Summary Hospital Course Discharge Diagnosis: 1. PRIMO 2. Alcoholic hepatitis, presumed pancreatitis with delayed presentation. 3. Hyponatremia 4. Thrombocytopenia 5. Electrolyte disturbances due to dehydration, including hypomagnesemia, hyponatremia, hypokalemia, and metabolic alkalosis. Hospital Course: This is a 28 year old male who presented with muscle stiffness, in the setting of chronic alochol use but recent persistent nausea and vomiting and a week of not tolerating oral intake. Creatinine was 3.98 on presentation, but with fluids improved to <2 more quickly than expected. He was able to tolerate a diet and had no ongoing symptoms. Mg went from <1 to 3.0 after repletion. Sodium was consistently around 125 without change, likely due to combination of beer potomania and dehydration. He had no neurological symptoms at discharge. His liver enzymes were markedly elevated, though not in a 2:1 fashion. Likely etiologies for this include hypotension or alcoholic hepatitis. Discriminant function was low, and no steroids were recommended for possible hepatitis. Gallstones were noted on abdominal imaging, and another possibility would be pancreatitis from alcohol or gallstones though this is not entirely known at the time of discharge. Repeat labs were ordered as an outpatient in the near future to ensure improving sodium creatinine and liver enzymes. Time Spent with Patient Time spent: Less than 30 minutes Exam Vital Signs (past 8 hours): - 07/31/23 08:48 07/31/23 09:38 07/31/23 10:04 Temperature 98.6 F Pulse Rate 91 H Respiratory Rate 16 Blood Pressure 122/78 Pulse Oximetry 98 98 Oxygen Delivery Method Room Air Room Air Oxygen Flow Rate 07/31/23 13:38 07/31/23 14:00 Temperature 98.7 F Pulse Rate 79 Respiratory Rate 15 Blood Pressure 127/78 Pulse Oximetry 99 99 Oxygen Delivery Method Room Air Oxygen Flow Rate 0 Oxygen Delivery Method Room Air Oxygen Flow Rate 0 Narrative Exam Narrative: General:? Patient is well developed and well nourished, in no distress at this time. HEENT:? Normocephalic, atraumatic, extraocular muscles intact, oral pharynx is clear and mucous membranes are moist. Neck: supple and symmetric, trachea is midline, no cervical adenopathy. Negative for JVD Chest:? Normal AP diameter and contour without kyphoscoliosis, no tachypnea, equal chest rise bilaterally. Lungs:? CTA b/l no wheezing rhonchi or rales. Cardio:?RRR no m/r/g. Abdomen: S NT ND. No CVA tenderness. Musculoskeletal:? Muscle strength and tone are equal within normal limits, no deformity. Extremities: No edema or joint effusions. No cyanosis or clubbing. Skin:? Pale,? Warm to touch,dry and intact without rashes, ulcerations or petechiae.? Neuro:? Alert and orientated x3,? sensation to touch intact in all extremities, no gross deficits noted of cranial nerves. Psych:? Patient has a well-kept appearance, appropriate affect, mental status attitude thought context and judgment are appropriate for age. Objective Labs 07/31/23 04:10 07/31/23 15:33 Labs: Laboratory Results - last 24 hr 1207/30/23 07/30/23 17:35 17:40 18:25 WBC 16.1 H RBC 4.33 L Hgb 15.0 Hct 42.2 MCV 97.3 MCH 34.7 H MCHC 35.7 RDW 14.2 Plt Count 128 L Neut % (Auto) 77.1 H Lymph % (Auto) 11.5 L [place] % (Auto) 10.9 Eos % (Auto) 0.2 L Baso % (Auto) 0.3 Neut # (Auto) 11002 H Lymph # (Auto) 1800 [place] # (Auto) 1800 H Eos # (Auto) 0 Baso # (Auto) 0 Sodium 120 L Potassium 3.2 L Chloride 65 L* Carbon Dioxide 37 H BUN 90 H Creatinine 3.26 H Estimated GFR 25 L BUN/Creatinine Ratio 27.6 H Glucose 102 H Calcium 7.5 L Magnesium Total Bilirubin 3.6 H AST 240 H ALT 218 H Alkaline Phosphatase 83 Total Protein 7.7 Albumin 4.3 Globulin 3.4 Albumin/Globulin Ratio 1.3 Lipase Urine Color Dark yellow Urine Appearance Cloudy Urine pH 5.0 Ur Specific [place] >=1.030 H Urine Protein 2+ H Urine Glucose (UA) Negative Urine Ketones 1+ H Urine Occult Blood 3+ H Urine Nitrate Negative Urine Bilirubin 2+ H Ur Bilirubin Confirm Cancelled Urine Urobilinogen 1.0 Ur Leukocyte Esterase Trace H Urine RBC 5-10/hpf H Urine WBC 5-10/hpf H Ur Squamous Epith Cells 1-5 /hpf Urine Bacteria Few (2-10) H Hyaline Casts 1-5/lpf Ur Culture Indicated? Specimen cultured 07/31/23 07/31/23 04:10 15:33 WBC 9.6 RBC 4.03 L Hgb 14.0 Hct 39.4 L MCV 97.9 MCH 34.9 H MCHC 35.6 RDW 14.0 Plt Count 77 L Neut % (Auto) 72.1 Lymph % (Auto) 12.6 L [place] % (Auto) 13.8 Eos % (Auto) 0.7 L Baso % (Auto) 0.8 Neut # (Auto) 6900 Lymph # (Auto) 1200 [place] # (Auto) 1300 H Eos # (Auto) 100 Baso # (Auto) 100 Sodium 125 L 125 L Potassium 3.6 3.4 Chloride 73 L* 82 L Carbon Dioxide 40 H* 34 H BUN 75 H 60 H Creatinine 2.75 H 1.91 H Estimated GFR 31 L 48 L BUN/Creatinine Ratio 27.3 H 31.4 H Glucose 87 94 Calcium 7.7 L 7.9 L Magnesium 3.0 H Total Bilirubin 3.6 H 2.2 H AST 168 H 150 H ALT 183 H 126 H Alkaline Phosphatase 71 107 Total Protein 7.4 7.0 Albumin 4.0 3.9 Globulin 3.4 3.1 Albumin/Globulin Ratio 1.2 1.3 Lipase 156 Urine Color Urine Appearance Urine pH Ur Specific [place] Urine Protein Urine Glucose (UA) Urine Ketones Urine Occult Blood Urine Nitrate Urine Bilirubin Ur Bilirubin Confirm Urine Urobilinogen Ur Leukocyte Esterase Urine RBC Urine WBC Ur Squamous Epith Cells Urine Bacteria Hyaline Casts Ur Culture Indicated? [facility] Medical History Stress at work Hearing decreased Eczema Depression Sinus headache Tinnitus History of alcohol abuse Adult ADHD (attention deficit hyperactivity disorder) Seizure-like activity Seizure (~2015) Family History Mother Vjnsz-[id number] deficiency Father Diabetes mellitus Social History household members: other Smoking Status: Never smoker Discharge Plan Discharge Plan Patient Disposition: Home Provider Discharge Comment: You were admitted to the hospital with a kidney injury and inflammation in your liver due to alcohol. This improved with fluids and time. Encourage you to look at resources for alcohol cessation when you're ready. Keep aggressive fluid intake up at home over the coming days, and eat a regular diet. Recommend you add in a multivitamin at home. I did put in another lab draw to recheck your kidney function and sodium in a couple of days. Please follow up with PCP as soon as possible. Discharge orders & Medications Follow up/Referrals: Brenden Wright DO [Primary Care Provider] - 1 Week Other Ambulatory Orders: Comprehensive Metabolic Panel (Routine) Timeframe: 2 Days Facility: [facility] - Location: Laboratory Ordered By: Harley Burt Diet/Activity/Treatments Diet: Diet as Tolerated and Regular Activity: As tolerated, no restrictions. Visit Report/Discharge Packet Stand Alone Forms: Patient Portal/API, Stroke Signs & Symptoms Discharge Data Primary Care Provider: Brenden Wright Quality VTE Deep Vein Thrombosis/Pulmonary Embolism Present on Admission: No
== END 2023-07-31 16:55 | disposition home or self-care (01) | DRG 469 ==
LOC: ED 23:50 → AC 07-31 08:29
PROVIDERS: Admitting Provider Internal Medicine; Emergency Provider Emergency Medicine; Family Provider Family Medicine; PCP Family Medicine; Referring Provider Emergency Medicine; Visit Provider Internal Medicine
DX: N17.9 Acute kidney failure, unspecified (principal); E86.0 Dehydration; K70.10 Alcoholic hepatitis without ascites; E87.1 Hypo-osmolality and hyponatremia; D69.6 Thrombocytopenia, unspecified; E83.42 Hypomagnesemia; E87.6 Hypokalemia; E87.3 Alkalosis; K85.90 Acute pancreatitis without necrosis or infection, unspecified; F10.90 Alcohol use, unspecified, uncomplicated; Y90.0 Blood alcohol level of less than 20 mg/100 ml
CPT/HCPCS: 36415; 71045; 74176; 76705; 80053; 80320; 81001; 82550; 82962; 83605; 83690; 83735; 85007; 85025; 85610; 85730; 87040; 87086; 87635; 93005; 96365; 96366; 96367; 96368; 96372; 96375; 99285; 99291; 99292; C9803; G0378; C9113; J2543; J2560; J3360; J3475

== ENCOUNTER 2023-09-22 22:24 | Emergency (ER) | payer OTHER, MEDICAID, SELFPAY ==
[2023-07-31 09:44] VITALS: BMI 22.1
[2023-09-22 22:31] VITALS: BP 117/80; PULSE 116; RESP 18; TEMP 36.4; O2SAT 96; BMI 21.8
--- NOTE | 2023-09-22 23:11 | ED.ALCOHOL ---
HPI - Alcohol General Chief Complaint: Toxicology Problem Stated Complaint: Dehydrated, pre seizure panic attack Time Seen by Provider: 09/22/23 23:08 Source: patient Mode of arrival: Family Vehicle History of Present Illness HPI narrative: 28-year-old male with history of alcohol use disorder presents by private vehicle for alcohol withdrawal. Patient states that he drinks large amounts of vodka daily. He stopped drinking 5 days ago and has had nausea and vomiting since then. Today he drank 1.5 shots but still threw up, and presented for evaluation. He states that he has a history of alcohol withdrawal seizures and has had to be admitted in the past. Related Data Previous Rx's Medication Instructions Recorded chlordiazepoxide HCl 25 mg capsule 25 mg PO .asdir #15 caps 09/23/23 ondansetron 4 mg disintegrating 4 mg PO Q8H PRN nausea and 09/23/23 tablet vomiting #30 tabs Allergies Allergy/AdvReac Type Severity Reaction Status Date / Time cat dander [CAT DANDER] Allergy Mild nose runs, Verified 09/22/23 22:41 eyes water Review of Systems Review of Systems Narrative: Negative except as noted above Patient History Medical History Stress at work Hearing decreased Eczema Depression Sinus headache Tinnitus History of alcohol abuse Adult ADHD (attention deficit hyperactivity disorder) Seizure-like activity Seizure (~2016) Family History Mother [id number] deficiency Father Diabetes mellitus Social History household members: other Smoking Status: Never smoker Smoking Status: Never smoker tobacco type: cigarettes alcohol intake frequency: 3 or more drinks per day Alcohol type: hard liquor Substance Use Type: marijuana Exam Initial Vital Signs Initial Vital Signs: Vital Signs Temperature 97.5 F L 09/22/23 22:31 Pulse Rate 116 H 09/22/23 22:31 Respiratory Rate 18 09/22/23 22:31 Blood Pressure 117/80 09/22/23 22:31 Pulse Oximetry 96 09/22/23 22:31 Oxygen Delivery Method Room Air 09/22/23 22:31 Const: Awake, alert, appears anxious Cardiac: Tachycardia, regular rhythm RESP: unlabored, clear bilaterally, no wheezing GI: Atraumatic, soft, nontender, nondistended, no rebound, no guarding MSK: Atraumatic, full range of motion, pulses equal Skin: Warm, Dry, intact, no rashes Neuro: AO x3, CN II-XII grossly intact, moves all extremities Psych: Anxious affect, mood normal, not suicidal, not homicidal Course Orders Ordered: ED Orders 09/22/23 22:54 Acetaminophen Stat Complete Blood Count AUTO DIFF Stat Comprehensive Metabolic Panel Stat Ethanol (ETOH) Stat Free T4, Direct Thyroxine Stat Magnesium Stat Salicylate Stat Thyroid Stimulating Hormone Stat 09/23/23 03:34 Ictotest Urine Stat Urinalysis and Microscopic Stat Urine Drug Screen, Rapid Stat 09/23/23 04:34 BMP [Basic Metabolic Panel] Stat CBC Auto Diff [Complete Blood Count AUTO DIFF] Stat Discontinued Medications Folic Acid (Folic Acid 1 Mg Tablet) 1 mg PO NOW ONE Stop: 09/22/23 23:25 Last Admin: 09/22/23 23:46 Dose: 1 mg Documented By: Sodium Chloride (Normal Saline 0.9%) 1,000 mls @ 1,000 mls/hr IV BOLUS ONE Stop: 09/23/23 00:23 Last Infusion: 09/23/23 00:30 Dose: Infused Documented By: Admin: 09/22/23 23:47 Dose: 1,000 mls/hr Documented By: Thiamine HCl 200 mg/ Sodium (Chloride) 102 mls @ 408 mls/hr IV NOW ONE Stop: 09/22/23 23:25 Last Infusion: 09/23/23 00:20 Dose: Infused Documented By: Admin: 09/22/23 23:50 Dose: 408 mls/hr Documented By: Sodium Chloride (Normal Saline 0.9%) 1,000 mls @ 1,000 mls/hr IV BOLUS ONE Stop: 09/23/23 01:29 Last Infusion: 09/23/23 02:00 Dose: Infused Documented By: Admin: 09/23/23 00:56 Dose: 1,000 mls/hr Documented By: AB Sodium Chloride (Normal Saline 0.9%) 1,000 mls @ 1,000 mls/hr IV BOLUS ONE Stop: 09/23/23 02:23 Last Infusion: 09/23/23 03:17 Dose: Infused Documented By: Admin: 09/23/23 02:13 Dose: 1,000 mls/hr Documented By: AB Phenobarbital (Phenobarbital 65 Mg/Ml Vial) 260 mg IV NOW ONE Stop: 09/22/23 23:09 Last Admin: 09/22/23 23:19 Dose: 260 mg Documented By: AB Potassium Chloride (Potassium Chloride 20 Meq Tab) 60 meq PO NOW ONE Stop: 09/22/23 23:33 Last Admin: 09/22/23 23:45 Dose: 60 meq Documented By: AB Potassium Chloride (Potassium Chloride 20 Meq Tab) 40 meq PO NOW ONE Stop: 09/23/23 05:04 Last Admin: 09/23/23 05:13 Dose: 40 meq Documented By: Vital Signs Vital signs: Vital Signs - 8 hr 09/22/23 22:31 09/22/23 23:14 09/22/23 23:30 Temperature 97.5 F L Pulse Rate 116 H 120 H 102 H Respiratory Rate 18 40 H 28 H Blood Pressure 117/80 Pulse Oximetry 96 92 Oxygen Delivery Method Room Air 09/22/23 23:32 09/22/23 23:32 09/23/23 00:00 Temperature Pulse Rate 102 H Respiratory Rate 17 Blood Pressure 116/78 123/72 Pulse Oximetry 90 L Oxygen Delivery Method 09/23/23 00:00 09/23/23 00:30 09/23/23 00:31 Temperature Pulse Rate 103 H 99 H 96 H Respiratory Rate 25 H 11 L 7 L Blood Pressure Pulse Oximetry 95 77 L 94 Oxygen Delivery Method 09/23/23 00:31 09/23/23 01:00 09/23/23 01:00 Temperature Pulse Rate 101 H Respiratory Rate 11 L Blood Pressure 109/76 121/71 Pulse Oximetry 100 Oxygen Delivery Method 09/23/23 01:30 09/23/23 01:30 09/23/23 02:00 Temperature Pulse Rate 102 H 87 Respiratory Rate 34 H 19 Blood Pressure 124/68 Pulse Oximetry 82 L 93 Oxygen Delivery Method 09/23/23 02:01 09/23/23 02:01 09/23/23 02:30 Temperature Pulse Rate 91 H 86 Respiratory Rate 18 22 Blood Pressure 128/88 Pulse Oximetry 89 L 96 Oxygen Delivery Method 09/23/23 02:30 09/23/23 03:00 09/23/23 03:00 Temperature Pulse Rate 83 Respiratory Rate 10 L Blood Pressure 130/65 114/58 L Pulse Oximetry 100 Oxygen Delivery Method 09/23/23 03:30 09/23/23 03:32 09/23/23 03:32 Temperature Pulse Rate 96 H 91 H Respiratory Rate 42 H 31 H Blood Pressure 135/105 H Pulse Oximetry 99 96 Oxygen Delivery Method 09/23/23 04:00 09/23/23 04:00 09/23/23 04:30 Temperature Pulse Rate 83 100 H Respiratory Rate 11 L 17 Blood Pressure 130/61 Pulse Oximetry 98 98 Oxygen Delivery Method 09/23/23 04:30 09/23/23 05:00 09/23/23 05:01 Temperature Pulse Rate 86 87 Respiratory Rate 19 29 H Blood Pressure 136/78 Pulse Oximetry 83 L 87 L Oxygen Delivery Method 09/23/23 05:01 09/23/23 05:55 09/23/23 05:58 Temperature Pulse Rate 89 Respiratory Rate Blood Pressure 119/64 138/73 Pulse Oximetry 87 L Oxygen Delivery Method 09/23/23 05:58 09/23/23 06:01 Temperature 98.2 F Pulse Rate 89 Respiratory Rate Blood Pressure Pulse Oximetry 98 Oxygen Delivery Method MDM - Alcohol Differential Diagnosis Differential diagnosis: Likely alcohol withdrawal delirium, hypomagnesemia and alcohol intoxication Lab Data 09/23/23 04:34 09/23/23 04:34 Labs: Lab Results 09/22/23 09/23/23 09/23/23 Range/Units 22:54 03:34 03:34 WBC 20.6 H (4.5-11.0) X10^3/uL RBC 4.55 (4.5-5.9) X10^6/uL Hgb 16.2 (13.5-17.5) g/dL Hct 45.4 (41-53) % MCV 99.8 (80-100) fL MCH 35.6 H (26-34) PG MCHC 35.7 (30-36) % RDW 14.6 (11.6-14.8) % Plt Count 192 (150-400) X10^3/uL Neut % (Auto) 71.2 (50-75) % Lymph % (Auto) 11.7 L (25-40) % [place] % (Auto) 16.7 H (3-14) % Eos % (Auto) 0.1 L (2-4) % Baso % (Auto) 0.3 (0-2) % Neut # (Auto) 04161 H (8838-6856) /uL Lymph # (Auto) 2400 (7232-9156) /uL [place] # (Auto) 3400 H (0-900) /uL Eos # (Auto) 0 (0-450) /uL Baso # (Auto) 100 (0-100) /uL Sodium 124 L (137-145) mmol/L Potassium 2.4 L* (3.4-5.1) mmol/L Chloride 53 L* (98-107) mmol/L Carbon Dioxide 24 (22-32) mmol/L BUN 86 H (9-20) mg/dL Creatinine 3.45 H (0.66-1.25) mg/dL Estimated GFR 24 L (>60) mL/min BUN/Creatinine Ratio 24.9 H (6-22) Glucose 130 H (70-100) mg/dL Calcium 10.8 H (8.4-10.2) mg/dL Magnesium 2.4 H (1.6-2.3) mg/dL Total Bilirubin 2.8 H (0.2-1.3) mg/dL AST 106 H (17-59) IU/L ALT 102 H (<50) IU/L Alkaline Phosphatase 93 (38-126) U/L Total Protein 10.3 H (6.3-8.2) g/dL Albumin 5.8 H (3.5-5.0) g/dL Globulin 4.5 H (1.7-4.1) g/dL Albumin/Globulin Ratio 1.3 (1.0-2.8) TSH 1.62 (0.47-4.68) uIU/mL Free T4 1.74 (0.78-2.19) ng/dL Urine Color Yellow Urine Appearance Clear Urine pH 6.0 Normal (4.5-8.0) Ur Specific [place] 1.015 (1.000-1.035) Urine Protein 1+ H (Negative) Urine Glucose (UA) Negative (Negative) g/dL Urine Ketones 1+ H (NEGATIVE) Urine Occult Blood 3+ H (Negative) Urine Nitrate Negative (Negative) Urine Bilirubin 1+ H (NEGATIVE) Ur Bilirubin Confirm TNP Urine Urobilinogen 1.0 (0.2) E.U./dL Ur Leukocyte Esterase Negative (NEGATIVE) Urine RBC 5-10/hpf H (0-5/HPF) Urine WBC 0-1/hpf (0-5/HPF) Ur Squamous Epith Cells 1-5 /hpf (0-5/HPF) Urine Bacteria Few (2-10) H (None) Hyaline Casts 1-5/lpf (None) Ur Culture Indicated? Cult not indicated Vol Urine Centrifuged 10ml (spun) Salicylates < 1.0 (<20) mg/dL U Opiates 300ng/mL cut Negative (Negative) Ur Oxycodone Screen Negative (Negative) Urine Methadone Screen Negative (Negative) Acetaminophen < 10 (10-30) ug/mL Ur Barbiturates Screen Negative (Negative) U Tricyclic Antidepress Negative (Negative) Ur Phencyclidine Scrn Negative (Negative) Ur Amphetamines Screen Negative (Negative) U Methamphetamines Scrn Negative (Negative) Ur MDMA Scrn (Ecstasy) Negative (Negative) U Benzodiazepines Scrn Negative (Negative) Urine Cocaine Screen Negative (Negative) U Marijuana (THC) Screen Positive H (Negative) Urine Specific [place] Normal (Normal) Ethyl Alcohol 16 H ( - 10) mg/dL Ur Creatinine Normal (Normal) 09/23/23 Range/Units 04:34 WBC 13.2 H (4.5-11.0) X10^3/uL RBC 3.56 L (4.5-5.9) X10^6/uL Hgb 12.6 L (13.5-17.5) g/dL Hct 35.2 L (41-53) % MCV 98.9 (80-100) fL MCH 35.4 H (26-34) PG MCHC 35.8 (30-36) % RDW 14.6 (11.6-14.8) % Plt Count 108 L (150-400) X10^3/uL Neut % (Auto) 72.1 (50-75) % Lymph % (Auto) 11.2 L (25-40) % [place] % (Auto) 16.4 H (3-14) % Eos % (Auto) 0.1 L (2-4) % Baso % (Auto) 0.2 (0-2) % Neut # (Auto) 9500 H (8978-5594) /uL Lymph # (Auto) 1500 (0539-7600) /uL [place] # (Auto) 2200 H (0-900) /uL Eos # (Auto) 0 (0-450) /uL Baso # (Auto) 0 (0-100) /uL Sodium 123 L (137-145) mmol/L Potassium 2.9 L (3.4-5.1) mmol/L Chloride 74 L* (98-107) mmol/L Carbon Dioxide 34 H (22-32) mmol/L BUN 79 H (9-20) mg/dL Creatinine 1.92 H (0.66-1.25) mg/dL Estimated GFR 48 L (>60) mL/min BUN/Creatinine Ratio 41.1 H (6-22) Glucose 83 (70-100) mg/dL Calcium 7.8 L (8.4-10.2) mg/dL Magnesium (1.6-2.3) mg/dL Total Bilirubin (0.2-1.3) mg/dL AST (17-59) IU/L ALT (<50) IU/L Alkaline Phosphatase (38-126) U/L Total Protein (6.3-8.2) g/dL Albumin (3.5-5.0) g/dL Globulin (1.7-4.1) g/dL Albumin/Globulin Ratio (1.0-2.8) TSH (0.47-4.68) uIU/mL Free T4 (0.78-2.19) ng/dL Urine Color Urine Appearance Urine pH (4.5-8.0) Ur Specific [place] (1.000-1.035) Urine Protein (Negative) Urine Glucose (UA) (Negative) g/dL Urine Ketones (NEGATIVE) Urine Occult Blood (Negative) Urine Nitrate (Negative) Urine Bilirubin (NEGATIVE) Ur Bilirubin Confirm Urine Urobilinogen (0.2) E.U./dL Ur Leukocyte Esterase (NEGATIVE) Urine RBC (0-5/HPF) Urine WBC (0-5/HPF) Ur Squamous Epith Cells (0-5/HPF) Urine Bacteria (None) Hyaline Casts (None) Ur Culture Indicated? Vol Urine Centrifuged Salicylates (<20) mg/dL U Opiates 300ng/mL cut (Negative) Ur Oxycodone Screen (Negative) Urine Methadone Screen (Negative) Acetaminophen (10-30) ug/mL Ur Barbiturates Screen (Negative) U Tricyclic Antidepress (Negative) Ur Phencyclidine Scrn (Negative) Ur Amphetamines Screen (Negative) U Methamphetamines Scrn (Negative) Ur MDMA Scrn (Ecstasy) (Negative) U Benzodiazepines Scrn (Negative) Urine Cocaine Screen (Negative) U Marijuana (THC) Screen (Negative) Urine Specific [place] (Normal) Ethyl Alcohol ( - 10) mg/dL Ur Creatinine (Normal) Urine Dip Bedside Urine Glucose Negative Bedside Urine Bilirubin - Negative Bedside Urine Ketone - Negative Urine Specific [place] 1.015 Bedside Urine Occult Blood +++ Bedside Urine pH 6 Bedside Urine Protein + 30 Bedside Urine Urobilinogen - Negative Bedside Urine Nitrite - Negative Bedside Urine Leukocytes - Negative Esterase MDM Narrative Medical decision making narrative: Possible alcohol withdrawal and patient with history of alcohol abuse and seizures following cessation of alcohol. Patient is tachycardic and anxious, CIWA score 10 on arrival. Technically stopped drinking 5 days ago and should be out of the range of the worst side effects of alcohol cessation. Thiamine, folic acid, phenobarbital ordered. Laboratory work is reviewed. Patient has leukocytosis with WBCs 20, possibly due to dehydration and stress from 5 days of emesis and alcohol withdrawal. Sodium 129, potassium 2.4, chloride 53, creatinine 3.45 (up from 1.97 in 07/2023), T bili 2.8, AST 106, ALT 102. Patient has received phenobarbital and IV fluids, heart rate has decreased and he is resting comfortably. We will continue to fluid hydrate and we will reassess labs. Currently no inpatient beds and are boarding in our ER. Repeat laboratory work shows significant improvement from when patient 1st arrived. WBCs down to 13, potassium 2.9, chloride 74, creatinine 1.92, sodium 123. Patient tolerating p.o. without difficulty, not tremulous, not tachycardic, slept comfortably overnight without any issues or need for additional benzodiazepines or other anti withdrawal agents. Patient stated that he has information for ITA but at this time is not interested in inpatient detox, stating that he would look for resources for withdrawal clinic. He states that he has ?several things to get together? before he is ready to begin going to rehab or detox. Librium taper and antiemetics sent to pharmacy of choice. Discharge Plan Departure Patient Disposition: Home Clinical Impression: PRIMO (acute kidney injury), Acute hypokalemia, Hypochloremia, History of alcohol abuse, Alcohol withdrawal syndrome Instructions: DI for Alcohol Use Disorder Prescriptions: New chlordiazepoxide HCl 25 mg capsule 25 mg PO .asdir Qty: 15 0RF Rx Instructions: Day 1: 50mg po q6h Day 2: 25mg po q6h Day 3: 25mg po q12h Day 4: 25mg at night ondansetron 4 mg tablet,disintegrating 4 mg PO Q8H PRN (Reason: nausea and vomiting) Qty: 30 0RF Referrals: Brenden Wright DO [Primary Care Provider] - Stand Alone Forms: Patient Portal/API
[2023-09-22 23:14] VITALS: PULSE 120; RESP 40
[2023-09-22 23:14] LABS: Acetaminophen < 10 ug/mL (10-30); Albumin 5.8 g/dL (3.5-5.0); Albumin Globulin Ratio 1.3 (1.0-2.8); Alkaline Phosphatase 93 U/L (38-126); BUN Creatinine Ratio 24.9 (6-22); Bilirubin Total 2.8 mg/dL (0.2-1.3); Blood Urea Nitrogen 86 mg/dL (9-20); Calcium 10.8 mg/dL (8.4-10.2); Carbon Dioxide 24 mmol/L (22-32); Estimated Glomerular Filt Rate 24 mL/min (>60); Ethanol (ETOH) 16 mg/dL; Globulin 4.5 g/dL (1.7-4.1); Glucose 130 mg/dL (70-100); HEMOLYSIS < 15 (0-50); Salicylate < 1.0 mg/dL (<20); Sodium 124 mmol/L (137-145); Total Protein 10.3 g/dL (6.3-8.2)
[2023-09-22 23:18] LABS: Add Manual Diff / Slide Review NO; Basophils Absolute Auto 100 /uL (0-100); Basophils Percent Auto 0.3 % (0-2); Eosinophils Absolute Auto 0 /uL (0-450); Eosinophils Percent Auto 0.1 % (2-4); Hematocrit 45.4 % (41-53); Hemoglobin 16.2 g/dL (13.5-17.5); Lymphocytes Absolute Auto 2400 /uL (1100-4500); Lymphocytes Percent Auto 11.7 % (25-40); Mean Corpuscular HGB Conc 35.7 % (30-36); Mean Corpuscular Hemoglobin 35.6 PG (26-34); Mean Corpuscular Volume 99.8 fL (80-100); Monocytes Absolute Auto 3400 /uL (0-900); Monocytes Percent Auto 16.7 % (3-14); Neutrophils Absolute Auto 14600 /uL (1500-7000); Neutrophils Percent Auto 71.2 % (50-75); Platelet Count 192 X10^3/uL (150-400); Red Blood Cell Count 4.55 X10^6/uL (4.5-5.9); Red Cell Distribution Width 14.6 % (11.6-14.8); White Blood Cell Count 20.6 X10^3/uL (4.5-11.0)
[2023-09-22] MEDS: PHENobarbital 65 MG/ML VIAL 260 MG IV (23:19)
[2023-09-22 23:20] LABS: Aspartate Aminotransferase 106 IU/L (17-59)
[2023-09-22 23:21] LABS: Alanine Aminotransferase 102 IU/L (<50)
[2023-09-22 23:27] LABS: Chloride 53 mmol/L (98-107); Potassium 2.4 mmol/L (3.4-5.1)
[2023-09-22 23:30] VITALS: PULSE 102; RESP 28; O2SAT 92
[2023-09-22 23:32] VITALS: BP 116/78; PULSE 102; RESP 17; O2SAT 90
[2023-09-22 23:41] LABS: Free T4, Direct Thyroxine 1.74 ng/dL (0.78-2.19)
[2023-09-22] MEDS: POTASSIUM CHLORIDE 20 MEQ TAB 60 MEQ PO (23:45)
[2023-09-22] MEDS: FOLIC ACID 1 MG TABLET PO (23:46)
[2023-09-22] MEDS: SODIUM CHLORIDE 0.9% 1,000 ML 1000 ML IV (23:47)
[2023-09-22] MEDS: THIAMINE 200 MG in SODIUM CHLORIDE 0.9% 100 ML 408 MG IV (23:50)
[2023-09-22 23:54] LABS: Thyroid Stimulating Hormone 1.62 uIU/mL (0.47-4.68)
[2023-09-23] VITALS (18 sets, daily range): BP systolic 109–138; BP diastolic 58–105; PULSE 83–103; RESP 7–42; TEMP 36.8; O2SAT 77–100
[2023-09-23 00:33] LABS: Magnesium 2.4 mg/dL (1.6-2.3)
[2023-09-23] MEDS: SODIUM CHLORIDE 0.9% 1,000 ML 1000 ML IV ×2 (00:56→02:13)
[2023-09-23 03:41] LABS: Appearance Urine UA CLEAR; Bilirubin Urine UA 1+ (NEGATIVE); Color Urine UA YELLOW; Glucose Urine UA NEGATIVE (Negative); Ketones Urine UA 1+ (NEGATIVE); Leukocyte Esterase Urine UA NEGATIVE (NEGATIVE); Nitrite Urine UA NEGATIVE (Negative); Occult Blood Urine UA 3+ (Negative); Protein Urine UA 1+ (Negative); Specific Gravity Urine UA 1.015 (1.000-1.035)
[2023-09-23 03:44] LABS: UR Morphine/Opiate cutoff 300 Negative (Negative); Ur Creatinine Normal (Normal); Ur Specific Gravity Normal (Normal); Urine Amphetamines Negative (Negative); Urine Barbiturates Negative (Negative); Urine Benzodiazepines Negative (Negative); Urine Cocaine Negative (Negative); Urine MDMA Negative (Negative); Urine Methadone Negative (Negative); Urine Methamphetamines Negative (Negative); Urine Oxycodone Negative (Negative); Urine Phencyclidine Negative (Negative); Urine Tetrahydrocannabinol Positive (Negative); Urine Tricyclic Antidepressant Negative (Negative); Urine pH Normal (Normal)
[2023-09-23 03:48] LABS: Urine Volume 10mL (spun)
[2023-09-23 03:49] LABS: Bacteria Urine Few (2-10); Hyaline Casts Urine 1-5/LPF; RBC Urine 5-10/HPF (0-5/HPF); Squamous Epithelial Cell Urine 1-5 /HPF (0-5/HPF); WBC Urine 0-1/HPF (0-5/HPF)
[2023-09-23 03:50] LABS: Culture Indicated Urine Cult Not Indicated
[2023-09-23 04:41] LABS: Add Manual Diff / Slide Review NO; Basophils Absolute Auto 0 /uL (0-100); Basophils Percent Auto 0.2 % (0-2); Eosinophils Absolute Auto 0 /uL (0-450); Eosinophils Percent Auto 0.1 % (2-4); Hematocrit 35.2 % (41-53); Hemoglobin 12.6 g/dL (13.5-17.5); Lymphocytes Absolute Auto 1500 /uL (1100-4500); Lymphocytes Percent Auto 11.2 % (25-40); Mean Corpuscular HGB Conc 35.8 % (30-36); Mean Corpuscular Hemoglobin 35.4 PG (26-34); Mean Corpuscular Volume 98.9 fL (80-100); Monocytes Absolute Auto 2200 /uL (0-900); Monocytes Percent Auto 16.4 % (3-14); Neutrophils Absolute Auto 9500 /uL (1500-7000); Neutrophils Percent Auto 72.1 % (50-75); Platelet Count 108 X10^3/uL (150-400); Red Blood Cell Count 3.56 X10^6/uL (4.5-5.9); Red Cell Distribution Width 14.6 % (11.6-14.8); White Blood Cell Count 13.2 X10^3/uL (4.5-11.0)
[2023-09-23 04:55] LABS: BUN Creatinine Ratio 41.1 (6-22); Blood Urea Nitrogen 79 mg/dL (9-20); Calcium 7.8 mg/dL (8.4-10.2); Carbon Dioxide 34 mmol/L (22-32); Estimated Glomerular Filt Rate 48 mL/min (>60); Glucose 83 mg/dL (70-100); HEMOLYSIS 33 (0-50); Potassium 2.9 mmol/L (3.4-5.1); Sodium 123 mmol/L (137-145)
[2023-09-23 04:57] LABS: Chloride 74 mmol/L (98-107)
[2023-09-23] MEDS: POTASSIUM CHLORIDE 20 MEQ TAB 40 MEQ PO (05:13)
== END 2023-09-23 06:03 | disposition home or self-care (01) ==
PROVIDERS: Emergency Provider Emergency Medicine; Family Provider Family Medicine; PCP Family Medicine
DX: N17.9 Acute kidney failure, unspecified (principal); E87.6 Hypokalemia; E87.8 Other disorders of electrolyte and fluid balance, not elsewhere classified; F10.239 Alcohol dependence with withdrawal, unspecified; Y90.0 Blood alcohol level of less than 20 mg/100 ml
CPT/HCPCS: 36415; 80048; 80053; 80305; 80320; 80329; 81001; 81003; 83735; 84439; 84443; 85025; 96365; 96375; 99284; G0480; J2560

== ENCOUNTER 2024-01-06 00:25 | Emergency (ER) | payer OTHER, MEDICAID, SELFPAY ==
[2023-07-31 09:44] VITALS: BMI 22.1
[2024-01-06 00:26] VITALS: PULSE 90; O2SAT 99
[2024-01-06 00:27] VITALS: BP 141/69; PULSE 89; O2SAT 100
[2024-01-06 00:28] VITALS: BP 141/69; PULSE 104; RESP 20; TEMP 36.6; O2SAT 99; BMI 49.3
[2024-01-06 00:30] VITALS: PULSE 99; O2SAT 100
[2024-01-06 00:31] VITALS: BP 145/79; PULSE 104; O2SAT 100
--- NOTE | 2024-01-06 00:39 | ED.FALL ---
HPI - Fall General Chief Complaint: Fall Stated Complaint: fall Time Seen by Provider: 01/06/24 00:26 Source: patient and EMS Mode of arrival: EMS History of Present Illness HPI Narrative: 28-year-old male arrives by EMS. Is ambulatory. Not on anticoagulation. She reported that the patient has been drinking. He fell. Sustained a laceration to his right cheek. No active bleeding. Patient is unable/unwilling to give more info on how he cut his cheek. He reports no other injuries from the event. Related Data Previous Rx's Medication Instructions Recorded chlordiazepoxide HCl 25 mg capsule 25 mg PO .asdir #15 caps 09/23/23 ondansetron 4 mg disintegrating 4 mg PO Q8H PRN nausea and 09/23/23 tablet vomiting #30 tabs Allergies Allergy/AdvReac Type Severity Reaction Status Date / Time cat dander [CAT DANDER] Allergy Mild nose runs, Verified 09/22/23 22:41 eyes water Review of Systems Review of Systems Narrative: See HPI Patient History Medical History Stress at work Hearing decreased Eczema Depression Sinus headache Tinnitus History of alcohol abuse Adult ADHD (attention deficit hyperactivity disorder) Seizure-like activity Seizure (~2015) Family History Mother [id number] deficiency Father Diabetes mellitus Social History household members: other Smoking Status: Never smoker Smoking Status: Never smoker tobacco type: cigarettes alcohol intake frequency: 3 or more drinks per day Alcohol type: hard liquor Substance Use Type: marijuana Exam Initial Vital Signs Initial Vital Signs: Vital Signs Temperature 98 F 01/06/24 00:28 Pulse Rate 104 H 01/06/24 00:28 Respiratory Rate 20 01/06/24 00:28 Blood Pressure 141/69 H 01/06/24 00:28 Pulse Oximetry 99 01/06/24 00:28 Oxygen Delivery Method Room Air 01/06/24 00:28 HENMT Mouth: oral mucosae normal, lip normal and tongue normal Skin Other: 3 cm laceration to the right cheek Procedures Laceration Repair Laceration 1: Site: face Side (If applicable): right Size (cm): 3 Description: linear Depth: simple, single layer Local Anesthetic: lidocaine 1% Amount of anesthesia used (mL): 4 Pre-repair: wound explored Skin layer closed with: nylon Skin layer suture size: 5-0 Number of sutures: 5 Technique: simple, interrupted Course Orders Ordered: Discontinued Medications Bacitracin (Bacitracin Oint 0.9 Gm Pckt) 1 applic TOP NOW ONE Stop: 01/06/24 00:40 Vital Signs Vital signs: Vital Signs - 8 hr 01/06/24 00:28 Temperature 98 F Pulse Rate 104 H Respiratory Rate 20 Blood Pressure 141/69 H Pulse Oximetry 99 Oxygen Delivery Method Room Air MDM - Fall MDM Narrative Medical decision making narrative: Patient's cut on his cheek his fairly clean and linear for a traumatic injury after a fall low this is how the patient stated that he injured his cheek. It was closed as described above. No other injuries found on the exam nor reported by the patient. Will discharge patient home with care instructions. Discharge Plan Departure Patient Disposition: Home Clinical Impression: Laceration Instructions: DI for Laceration Repair Activity Restrictions/Additional Instructions: The stitches that were placed today will need to be removed in 7 days. You can go to the primary care doctor or the walk-in clinic for this. Until then you can shower like normal. You can put topical antibiotic ointment over the area. Return to the emergency department for new or worsening symptoms. Prescriptions: No Action chlordiazepoxide HCl 25 mg capsule 25 mg PO .asdir Qty: 15 0RF Rx Instructions: Day 1: 50mg po q6h Day 2: 25mg po q6h Day 3: 25mg po q12h Day 4: 25mg at night ondansetron 4 mg tablet,disintegrating 4 mg PO Q8H PRN (Reason: nausea and vomiting) Qty: 30 0RF Referrals: Brenden Wright DO [Primary Care Provider] - Stand Alone Forms: Patient Portal/API
[2024-01-06] MEDS: BACITRACIN OINT 0.9 GM PCKT 1 APPLIC TOP (00:45)
== END 2024-01-06 01:03 | disposition home or self-care (01) ==
PROVIDERS: Emergency Provider Emergency Medicine; Family Provider Family Medicine; PCP Family Medicine
DX: S01.411A Laceration without foreign body of right cheek and temporomandibular area, initial encounter (principal); W19.XXXA Unspecified fall, initial encounter
CPT/HCPCS: 12013; 99282; 99283

== ENCOUNTER 2024-09-06 19:01 | Observation (INO) | payer OTHER, SELFPAY ==
[2023-07-31 09:44] VITALS: BMI 22.1
[2024-09-06] VITALS (12 sets, daily range): BP systolic 126–162; BP diastolic 65–91; PULSE 90–118; RESP 16–28; TEMP 36.4; O2SAT 89–98; BMI 23.0
--- NOTE | 2024-09-06 19:25 | ED_ITS ---
HPI - Alcohol General Chief Complaint: Toxicology Problem Stated Complaint: withdrawal symptoms Time Seen by Provider: 09/06/24 19:20 Source: patient Mode of arrival: Ambulatory History of Present Illness HPI narrative: 29-year-old male with history of alcohol use disorder presents by private vehicle from home for nausea, nonbloody, nonbilious vomiting, possible alcohol withdrawal. Patient states that he drinks at least a pint of alcohol daily. Last drink 6 or 7 days ago per patient report. Patient has been vomiting and has not been able to keep anything down. Today because he was feeling so poorly he took 2 shots of vodka before coming in. Denies history of alcohol withdrawal seizures. Related Data Previous Rx's Medication Instructions Recorded chlordiazepoxide HCl 25 mg capsule 25 mg PO .asdir #15 caps 09/23/23 ondansetron 4 mg disintegrating 4 mg PO Q8H PRN nausea and 09/23/23 tablet vomiting #30 tabs Allergies Allergy/AdvReac Type Severity Reaction Status Date / Time cat dander [CAT DANDER] Allergy Mild nose runs, Verified 01/19/24 09:54 eyes water Patient History Medical History Stress at work Hearing decreased Eczema Depression Sinus headache Tinnitus History of alcohol abuse Adult ADHD (attention deficit hyperactivity disorder) Seizure-like activity Seizure (~2015) Family History Mother Ktnsp-3-lnuswszwwpp deficiency Father Diabetes mellitus Social History household members: other Smoking Status: Former smoker Smoking Status: Former smoker tobacco type: cigarettes alcohol intake frequency: 3 or more drinks per day Alcohol type: hard liquor Exam Initial Vital Signs Initial Vital Signs: Vital Signs Temperature 97.6 F 09/06/24 19:11 Pulse Rate 118 H 09/06/24 19:11 Respiratory Rate 16 09/06/24 19:11 Blood Pressure 126/74 09/06/24 19:11 Pulse Oximetry 97 09/06/24 19:11 Oxygen Delivery Method Room Air 09/06/24 19:11 Const: Awake, alert, no acute distress, nontoxic appearing Mouth: Dry mucous membranes Cardiac: Tachycardia, regular rhythm RESP: unlabored, clear bilaterally, no wheezing GI: Soft, nontender, nondistended, no rebound, no guarding Skin: Warm, Dry, intact, no rashes Neuro: AO x3, CN II-XII grossly intact, moves all extremities Course Orders Ordered: ED Orders 09/06/24 19:18 Urine Drug Screen, Rapid Stat 09/06/24 19:40 Acetaminophen Stat Complete Blood Count AUTO DIFF Stat Comprehensive Metabolic Panel Stat Ethanol (ETOH) Stat Free T4, Direct Thyroxine Stat Magnesium Stat Salicylate Stat Thyroid Stimulating Hormone Stat 09/06/24 22:55 BMP [Basic Metabolic Panel] Stat Sodium Chloride (Normal Saline 0.9%) 1,000 mls @ 1,000 mls/hr IV BOLUS ONE Stop: 09/07/24 00:39 Discontinued Medications Folic Acid (Folic Acid 1 Mg Tablet) 1 mg PO NOW ONE Stop: 09/06/24 23:41 Sodium Chloride (Normal Saline 0.9%) 1,000 mls @ 1,000 mls/hr IV BOLUS ONE Stop: 09/06/24 21:25 Last Infusion: 09/06/24 21:58 Dose: Infused Documented By: Admin: 09/06/24 20:29 Dose: 1,000 mls/hr Documented By: MR Sodium Chloride (Normal Saline 0.9%) 1,000 mls @ 1,000 mls/hr IV BOLUS ONE Stop: 09/06/24 21:25 Last Infusion: 09/06/24 22:32 Dose: Infused Documented By: Admin: 09/06/24 21:47 Dose: 1,000 mls/hr Documented By: MR Thiamine HCl 200 mg/ Sodium (Chloride) 102 mls @ 408 mls/hr IV NOW ONE Stop: 09/06/24 23:41 Ondansetron HCl (Ondansetron 4 Mg/2 Ml Inj) 4 mg IV NOW ONE Stop: 09/06/24 19:25 Last Admin: 09/06/24 20:08 Dose: 4 mg Documented By: MR Potassium Chloride (Potassium Chloride 20 Meq Tab) 60 meq PO NOW ONE Stop: 09/06/24 23:19 Last Admin: 09/06/24 23:32 Dose: 60 meq Documented By: MR Vital Signs Vital signs: Vital Signs - 8 hr 09/06/24 19:11 09/06/24 19:53 09/06/24 20:00 Temperature 97.6 F Pulse Rate 118 H 110 H 111 H Respiratory Rate 16 20 18 Blood Pressure 126/74 Pulse Oximetry 97 97 98 Oxygen Delivery Method Room Air 09/06/24 20:30 09/06/24 21:00 09/06/24 21:30 Temperature Pulse Rate 116 H 98 H 96 H Respiratory Rate 20 18 17 Blood Pressure Pulse Oximetry 97 96 92 Oxygen Delivery Method 09/06/24 22:00 09/06/24 23:39 Temperature Pulse Rate 98 H 90 Respiratory Rate 28 H 18 Blood Pressure 126/65 Pulse Oximetry 89 L 95 Oxygen Delivery Method Room Air MDM - Alcohol Differential Diagnosis Differential diagnosis: Likely hypomagnesemia, alcohol intoxication and alcohol ketoacidosis Lab Data 09/06/24 19:40 09/06/24 22:55 Labs: Lab Results 09/06/24 09/06/24 Range/Units 19:40 22:55 WBC 20.4 H (4.5-11.0) X10^3/uL RBC 5.26 (4.5-5.9) X10^6/uL Hgb 17.9 H (13.5-17.5) g/dL Hct 51.1 (41-53) % MCV 97.0 (80-100) fL MCH 34.0 (26-34) PG MCHC 35.0 (30-36) % RDW 15.8 H (11.6-14.8) % Plt Count 195 (150-400) X10^3/uL Neut % (Auto) 81.2 H (50-75) % Lymph % (Auto) 8.2 L (25-40) % [place] % (Auto) 10.4 (3-14) % Eos % (Auto) 0.0 L (2-4) % Baso % (Auto) 0.2 (0-2) % Neut # (Auto) 02378 H (7580-4759) /uL Lymph # (Auto) 1700 (3198-1126) /uL [place] # (Auto) 2100 H (0-900) /uL Eos # (Auto) 0 (0-450) /uL Baso # (Auto) 0 (0-100) /uL RBC Morphology See below Stomatocytes 2+ H Sodium 123 L 125 L (137-145) mmol/L Potassium 2.8 L 3.5 (3.4-5.1) mmol/L Chloride < 60 L* 62 L* (98-107) mmol/L Carbon Dioxide 37 H 42 H* (22-32) mmol/L BUN 106 H* 112 H* (9-20) mg/dL Creatinine 4.67 H 3.27 H (0.66-1.25) mg/dL Estimated GFR 16 L 25 L (>60) mL/min BUN/Creatinine Ratio 22.7 H 34.3 H (6-22) Glucose 212 H 95 D (70-100) mg/dL Calcium 8.6 6.8 L (8.4-10.2) mg/dL Magnesium 2.0 (1.6-2.3) mg/dL Total Bilirubin 1.7 H (0.2-1.3) mg/dL AST 199 H (17-59) IU/L ALT 185 H (<50) IU/L Alkaline Phosphatase 102 (38-126) U/L Total Protein 10.7 H (6.3-8.2) g/dL Albumin 5.8 H (3.5-5.0) g/dL Globulin 5.61472 H (1.7-4.1) g/dL Albumin/Globulin Ratio 1.0 (1.0-2.8) TSH 0.863 (0.47-4.68) uIU/mL Free T4 1.59 (0.78-2.19) ng/dL Salicylates < 1.0 (<20) mg/dL Acetaminophen < 10 (10-30) ug/mL Ethyl Alcohol < 10 ( - 10) mg/dL MDM Narrative Medical decision making narrative: Ill-appearing but nontoxic patient with nearly 1 week of vomiting due to cessation of alcohol. Other than 2 shots today patient's last drink was nearly 1 week ago. He was not tremulous or diaphoretic, he is tachycardic and does appear to be volume depleted. Labs, Zofran, IV fluids ordered. Thiamine and folic acid ordered. Lab showed WBC count 20.4, hemoglobin 17.9, platelet count 195, sodium 123, potassium 2.8, CO2 37, creatinine 4.67, T. bili 1.7, AST 199, ALT 185, EtOH <10. Patient tolerating p.o. after Zofran. Plan to give 2 L of fluids and then recheck kidney function. Repeat BMP after 2 L of IV fluids shows sodium 125, potassium 3.5, chloride 62, CO2 42, creatinine 3.27. Patient was showing improvement but still has elevation in creatinine and indicators of significant dehydration. Patient reassessed, resting comfortably in bed. Watching videos on his phone. Due to his severe dehydration from cessation of alcohol I do recommend admission. Patient in agreement at this time. Discharge Plan Departure Patient Disposition: Admitted as Observation Clinical Impression: Acute dehydration, Acute hypokalemia, Hypochloremia Prescriptions: No Action chlordiazepoxide HCl 25 mg capsule 25 mg PO .asdir Qty: 15 0RF Rx Instructions: Day 1: 50mg po q6h Day 2: 25mg po q6h Day 3: 25mg po q12h Day 4: 25mg at night ondansetron 4 mg tablet,disintegrating 4 mg PO Q8H PRN (Reason: nausea and vomiting) Qty: 30 0RF Referrals: Brenden Wright DO [Primary Care Provider] - Admit Date/Time: 09/06/24 23:52 Admit Provider: Fabian Hackett
[2024-09-06] MEDS: ONDANSETRON 4 MG/2 ML INJ IV (20:08)
[2024-09-06 20:10] LABS: Acetaminophen < 10 ug/mL (10-30); Alanine Aminotransferase 185 IU/L (<50); Albumin 5.8 g/dL (3.5-5.0); Alkaline Phosphatase 102 U/L (38-126); Aspartate Aminotransferase 199 IU/L (17-59); Bilirubin Total 1.7 mg/dL (0.2-1.3); Calcium 8.6 mg/dL (8.4-10.2); Carbon Dioxide 37 mmol/L (22-32); Ethanol (ETOH) < 10 mg/dL; Glucose 212 mg/dL (70-100); Salicylate < 1.0 mg/dL (<20); Sodium 123 mmol/L (137-145)
[2024-09-06 20:15] LABS: Estimated Glomerular Filt Rate 16 mL/min (>60); HEMOLYSIS < 15 (0-50)
[2024-09-06 20:16] LABS: Total Protein 10.7 g/dL (6.3-8.2)
[2024-09-06 20:23] LABS: Basophils Absolute Auto 0 /uL (0-100); Basophils Percent Auto 0.2 % (0-2); Eosinophils Absolute Auto 0 /uL (0-450); Hematocrit 51.1 % (41-53); Hemoglobin 17.9 g/dL (13.5-17.5); Lymphocytes Absolute Auto 1700 /uL (1100-4500); Lymphocytes Percent Auto 8.2 % (25-40); Monocytes Absolute Auto 2100 /uL (0-900); Monocytes Percent Auto 10.4 % (3-14); Neutrophils Absolute Auto 16600 /uL (1500-7000); Neutrophils Percent Auto 81.2 % (50-75); Platelet Count 195 X10^3/uL (150-400); Red Blood Cell Count 5.26 X10^6/uL (4.5-5.9); Red Cell Distribution Width 15.8 % (11.6-14.8); White Blood Cell Count 20.4 X10^3/uL (4.5-11.0)
[2024-09-06 20:24] LABS: Add Manual Diff / Slide Review SLIDE REVIEW
[2024-09-06 20:28] LABS: Stomatocytes 2+
[2024-09-06] MEDS: SODIUM CHLORIDE 0.9% 1,000 ML 1000 ML IV ×3 (20:29→23:52)
[2024-09-06 20:30] LABS: Potassium 2.8 mmol/L (3.4-5.1)
[2024-09-06 20:33] LABS: Chloride < 60 mmol/L (98-107)
[2024-09-06 20:34] LABS: BUN Creatinine Ratio 22.7 (6-22)
[2024-09-06 20:35] LABS: Globulin 5.20001 g/dL (1.7-4.1)
[2024-09-06 20:36] LABS: Blood Urea Nitrogen 106 mg/dL (9-20)
[2024-09-06 20:44] LABS: Free T4, Direct Thyroxine 1.59 ng/dL (0.78-2.19)
[2024-09-06 20:58] LABS: Thyroid Stimulating Hormone 0.863 uIU/mL (0.47-4.68)
--- NOTE | 2024-09-06 21:16 | PC.NURSE ---
Patient appears to be doing better. Sitting up in bed texting and no longer shaking or hyperventilating. Breathing at normal rate. Patient requesting pill we gave him last time he was here. It helped him relax and sleep. informed
--- NOTE | 2024-09-06 21:22 | PC.NURSE ---
Patient is unable to obtain a urine sample at this time
[2024-09-06 23:10] LABS: Calcium 6.8 mg/dL (8.4-10.2); Glucose 95 mg/dL (70-100); Potassium 3.5 mmol/L (3.4-5.1); Sodium 125 mmol/L (137-145)
[2024-09-06 23:17] LABS: BUN Creatinine Ratio 34.3 (6-22); Estimated Glomerular Filt Rate 25 mL/min (>60); HEMOLYSIS 50 (0-50)
[2024-09-06 23:26] LABS: Blood Urea Nitrogen 112 mg/dL (9-20); Carbon Dioxide 42 mmol/L (22-32); Chloride 62 mmol/L (98-107)
[2024-09-06] MEDS: POTASSIUM CHLORIDE 20 MEQ TAB 60 MEQ PO (23:32)
[2024-09-06] MEDS: THIAMINE 200 MG in SODIUM CHLORIDE 0.9% 100 ML 408 MG IV (23:52)
[2024-09-06] MEDS: FOLIC ACID 1 MG TABLET PO (23:53)
[2024-09-07] VITALS: PULSE 100
[2024-09-07 00:25] VITALS: BMI 23.0
[2024-09-07 00:30] VITALS: PULSE 101; RESP 29
[2024-09-07] MEDS: PROCHLORPERAZINE 10 MG/2 ML VIAL 5 MG IV (00:59)
[2024-09-07] MEDS: PANTOPRAZOLE 40 MG VIAL 20 MG IV (00:59)
[2024-09-07 01:23] VITALS: BP 167/102; PULSE 79; RESP 18; TEMP 36.6; O2SAT 96
[2024-09-07 02:29] LABS: Add Manual Diff / Slide Review NO; Basophils Absolute Auto 0 /uL (0-100); Eosinophils Absolute Auto 0 /uL (0-450); Eosinophils Percent Auto 0.1 % (2-4); Hematocrit 39.3 % (41-53); Hemoglobin 13.7 g/dL (13.5-17.5); Lymphocytes Absolute Auto 1200 /uL (1100-4500); Lymphocytes Percent Auto 7.2 % (25-40); Mean Corpuscular HGB Conc 34.8 % (30-36); Mean Corpuscular Volume 97.5 fL (80-100); Monocytes Absolute Auto 2700 /uL (0-900); Monocytes Percent Auto 15.7 % (3-14); Neutrophils Absolute Auto 13200 /uL (1500-7000); Platelet Count 125 X10^3/uL (150-400); Red Blood Cell Count 4.03 X10^6/uL (4.5-5.9); Red Cell Distribution Width 15.8 % (11.6-14.8); White Blood Cell Count 17.1 X10^3/uL (4.5-11.0)
[2024-09-07 02:31] LABS: INR 1.1 (0.9-1.3); Prothrombin Time 12.4 SECONDS (9.4-12.5)
[2024-09-07 02:34] LABS: MRSA (Nasal) PCR DETECTED (Not Detect)
[2024-09-07 02:43] LABS: Alanine Aminotransferase 114 IU/L (<50); Albumin 4.3 g/dL (3.5-5.0); Albumin Globulin Ratio 1.4 (1.0-2.8); Alkaline Phosphatase 62 U/L (38-126); Aspartate Aminotransferase 124 IU/L (17-59); BUN Creatinine Ratio 32.9 (6-22); Bilirubin Total 1.3 mg/dL (0.2-1.3); Blood Urea Nitrogen 100 mg/dL (9-20); Calcium 7.1 mg/dL (8.4-10.2); Estimated Glomerular Filt Rate 27 mL/min (>60); Glucose 98 mg/dL (70-100); HEMOLYSIS 37 (0-50); Magnesium 1.4 mg/dL (1.6-2.3); Potassium 2.8 mmol/L (3.4-5.1); Sodium 124 mmol/L (137-145); Total Protein 7.3 g/dL (6.3-8.2)
[2024-09-07 02:50] LABS: Carbon Dioxide 38 mmol/L (22-32)
[2024-09-07 02:52] LABS: Chloride 69 mmol/L (98-107)
[2024-09-07 04:08] LABS: UR Morphine/Opiate cutoff 300 Negative (Negative); Ur Creatinine Normal (Normal); Ur Specific Gravity Normal (Normal); Urine Amphetamines Negative (Negative); Urine Barbiturates Negative (Negative); Urine Benzodiazepines Negative (Negative); Urine Cocaine Negative (Negative); Urine MDMA Negative (Negative); Urine Methadone Negative (Negative); Urine Methamphetamines Negative (Negative); Urine Oxycodone Negative (Negative); Urine Phencyclidine Negative (Negative); Urine Tetrahydrocannabinol Positive (Negative); Urine Tricyclic Antidepressant Negative (Negative); Urine pH Normal (Normal)
[2024-09-07 05:56] VITALS: BP 132/64; PULSE 85; RESP 16; TEMP 36.2; O2SAT 99
--- NOTE | 2024-09-07 05:57 | P.HP_ITS ---
History of Present Illness History of Present Illness Date Patient Seen: 09/07/24 Time Patient Seen: 01:00 Chief complaint: withdrawal symptoms Narrative: 29 y/o with PMH of alcoholism, ADH and depression, presented with intractable nausea and vomiting, a week after he had his last drink with the exception of one shot prior to admission. A year ago he had a similar presentation, with nausea and vomiting after he quit. Each time with hypokalemia, hypomagnesemia and hyponatremia. Borderline hypertensive, tachycardic and lucid. [facility] Medical History Stress at work Hearing decreased Eczema Depression Sinus headache Tinnitus History of alcohol abuse Adult ADHD (attention deficit hyperactivity disorder) Seizure-like activity Seizure (~2015) Family History Mother Tkbsq-[id number] deficiency Father Diabetes mellitus Social History household members: other Smoking Status: Former smoker alcohol intake: current Meds Home Medications and Allergies Allergies Allergy/AdvReac Type Severity Reaction Status Date / Time cat dander [CAT DANDER] Allergy Mild nose runs, Verified 01/19/24 09:54 eyes water Review of Systems Constitutional Comments: w/o fever or chills Cardiovascular Comments: w/o chest pain Respiratory Comments: w/o shortness of breath Gastrointestinal Comments: pain that he relates to vomiting nausea vomiting Psychiatric Comments: w/o hallucinations Exam Vital Signs (past 8 hours): - 09/06/24 22:00 09/06/24 22:09 09/06/24 22:09 Temperature Pulse Rate 98 H 92 H Respiratory Rate 28 H 26 H Blood Pressure 162/91 H Pulse Oximetry 89 L 94 Oxygen Delivery Method Room Air 09/06/24 22:30 09/06/24 23:00 09/06/24 23:30 Temperature Pulse Rate 114 H 98 H 93 H Respiratory Rate 26 H Blood Pressure Pulse Oximetry Oxygen Delivery Method 09/06/24 23:39 09/07/24 00:00 09/07/24 00:30 Temperature Pulse Rate 90 100 H 101 H Respiratory Rate 18 29 H Blood Pressure 126/65 Pulse Oximetry 95 Oxygen Delivery Method Room Air 09/07/24 01:23 Temperature 97.8 F Pulse Rate 79 Respiratory Rate 18 Blood Pressure 167/102 H Pulse Oximetry 96 Oxygen Delivery Method Oxygen Delivery Method Room Air Narrative Exam Narrative: in no distress HENMT Other: normocephalic Neck Other: supple Resp Other: normal respiratory effort Cardio Other: RRR Neuro Other: w/o tremor Psych Other: lucid Objective Labs 09/07/24 02:05 09/07/24 02:05 Labs: Laboratory Results - last 24 hr 09/06/24 09/06/24 09/07/24 19:40 22:55 01:25 WBC 20.4 H RBC 5.26 Hgb 17.9 H Hct 51.1 MCV 97.0 MCH 34.0 MCHC 35.0 RDW 15.8 H Plt Count 195 Neut % (Auto) 81.2 H Lymph % (Auto) 8.2 L [place] % (Auto) 10.4 Eos % (Auto) 0.0 L Baso % (Auto) 0.2 Neut # (Auto) 97611 H Lymph # (Auto) 1700 [place] # (Auto) 2100 H Eos # (Auto) 0 Baso # (Auto) 0 RBC Morphology See below Stomatocytes 2+ H PT INR Sodium 123 L 125 L Potassium 2.8 L 3.5 Chloride < 60 L* 62 L* Carbon Dioxide 37 H 42 H* BUN 106 H* 112 H* Creatinine 4.67 H 3.27 H Estimated GFR 16 L 25 L BUN/Creatinine Ratio 22.7 H 34.3 H Glucose 212 H 95 D Calcium 8.6 6.8 L Magnesium 2.0 Total Bilirubin 1.7 H AST 199 H ALT 185 H Alkaline Phosphatase 102 Total Protein 10.7 H Albumin 5.8 H Globulin 5.93899 H Albumin/Globulin Ratio 1.0 TSH 0.863 Free T4 1.59 Nasal Screen MRSA (PCR) Detected H Salicylates < 1.0 U Opiates 300ng/mL cut Ur Oxycodone Screen Urine Methadone Screen Acetaminophen < 10 Ur Barbiturates Screen U Tricyclic Antidepress Ur Phencyclidine Scrn Ur Amphetamines Screen U Methamphetamines Scrn Ur MDMA Scrn (Ecstasy) U Benzodiazepines Scrn Urine Cocaine Screen U Marijuana (THC) Screen Urine pH Urine Specific [place] Ethyl Alcohol < 10 Ur Creatinine 09/07/24 09/07/24 02:05 03:30 WBC 17.1 H RBC 4.03 L Hgb 13.7 Hct 39.3 L MCV 97.5 MCH 34.0 MCHC 34.8 RDW 15.8 H Plt Count 125 L Neut % (Auto) 77.0 H Lymph % (Auto) 7.2 L [place] % (Auto) 15.7 H Eos % (Auto) 0.1 L Baso % (Auto) 0.0 Neut # (Auto) 48067 H Lymph # (Auto) 1200 [place] # (Auto) 2700 H Eos # (Auto) 0 Baso # (Auto) 0 RBC Morphology Stomatocytes PT 12.4 INR 1.1 Sodium 124 L Potassium 2.8 L Chloride 69 L* Carbon Dioxide 38 H BUN 100 H Creatinine 3.04 H Estimated GFR 27 L BUN/Creatinine Ratio 32.9 H Glucose 98 Calcium 7.1 L Magnesium 1.4 L Total Bilirubin 1.3 AST 124 H ALT 114 H Alkaline Phosphatase 62 Total Protein 7.3 Albumin 4.3 Globulin 3.0 Albumin/Globulin Ratio 1.4 TSH Free T4 Nasal Screen MRSA (PCR) Salicylates U Opiates 300ng/mL cut Negative Ur Oxycodone Screen Negative Urine Methadone Screen Negative Acetaminophen Ur Barbiturates Screen Negative U Tricyclic Antidepress Negative Ur Phencyclidine Scrn Negative Ur Amphetamines Screen Negative U Methamphetamines Scrn Negative Ur MDMA Scrn (Ecstasy) Negative U Benzodiazepines Scrn Negative Urine Cocaine Screen Negative U Marijuana (THC) Screen Positive H Urine pH Normal Urine Specific [place] Normal Ethyl Alcohol Ur Creatinine Normal Assessment & Plan Assessment and plan (1) Alcoholism: Status: Acute (2) Dehydration with hyponatremia: Status: Acute (3) Hypokalemia due to excessive gastrointestinal loss of potassium: Status: Acute (4) Hypomagnesemia: Status: Acute (5) Depression: Status: Acute (6) Adult ADHD (attention deficit hyperactivity disorder): Status: Acute Assessment & Plan narrative: Alcoholism - on admission w/o withdrawal signs - CIWA / po / iv Ativan prn - monitor, B1, FA Hypovolemic Hyponatremia - NS Hypokalemia / Hypomagnesemia - MgS, KCl IV Nausea / Vomiting - lipase still pending - pancreatitis? - gastritis / PUD? - PPI IV - antiemetics DVT prophylaxis - SCDs Time-Based Coding :: [TOTAL MINUTES] spent with patient and on the chart (including review of chart, obtaining history, exam, reviewing outside data, placing orders, documenting exam and treatment plan, and counseling patient) on [DATE].
[2024-09-07 07:56] LABS: Lipase 108 U/L (23-300)
[2024-09-07 08:00] VITALS: BP 159/84; PULSE 94; RESP 17; TEMP 36.8; O2SAT 100
--- NOTE | 2024-09-07 08:17 | PC.NURSE ---
Pt A&Ox4, declining IV at this time, no current IV access. Care ongoing.
[2024-09-07] MEDS: POTASSIUM CHLORIDE 20 MEQ TAB 40 MEQ PO (11:39)
--- NOTE | 2024-09-07 11:48 | CM.DANOTE ---
Initial DCP Assessment Note Pt is a 29 yo male, resident of [place], arrives with N/V, ETOH withdrawal symptoms. PCP: Brenden Wright Payer: [employer] Reviewed chart, pt discussed in multidisciplinary rounds this morning. Patient, reportedly, drinks up to a pint of hard alcohol daily. Patient reported that he stopped drinking days ago and started again right before presenting to the ED because he felt poorly. Patient anxious to discharge home today and Dr Tompkins is likely to agree to release patient. No barriers identified at this time to patient's discharge home. If patient remains admitted, consider SW visit to discuss [facility] resources. CM team will plan to follow clinical course closely. YANIQUE Herron Discharge Planning/Care Management CM Discharge Assessment Start: 09/07/24 11:34 Freq: Status: Active Protocol: Document 09/07/24 11:34 YOLANDA (Rec: 09/07/24 11:48 YOLANDA [id number]) Discharge Planning Assessment Assigned Tnt Powder Worker YANIQUE Barry DPOA/Assigned Designee Name Becky Barber, mother Bisi Pizarro, grandmother Contact Information mother: P [phone] or P [phone] grandmother: [phone] Advance Directives? No History Provided By Patient,Medical Record Has Patient been admitted in last 30 No days? Prior Living Arrangements House Household Members other Type of transporation used prior to Drives own vehicle admit Independent with ADL's Yes Is patient alert and oriented? Yes Barriers to Discharge No Discharge Plan Home Transportation Arrangement Friends or family Referrals Initiated None needed
--- NOTE | 2024-09-07 11:55 | P.DS_ITS ---
History of Present Illness History of Present Illness Date Patient Seen: 09/07/24 Time Patient Seen: 09:44 Chief complaint: withdrawal symptoms Narrative: 29 y/o with PMH of alcoholism, ADH and depression, presented with intractable nausea and vomiting, a week after he had his last drink with the exception of one shot prior to admission. A year ago he had a similar presentation, with nausea and vomiting after he quit. Each time with hypokalemia, hypomagnesemia and hyponatremia. Borderline hypertensive, tachycardic and lucid. Discharge Providers Provider Date of admission: 09/06/24 23:52 Discharge Date: 09/07/24 Primary care physician: Brenden Wright, DO Consults: 09/07/24 05:56 Consult to Dietitian, Adult Routine Comment: Reason For Exam: acoholism Discharge provider: Hebert Tompkins MD Summary Hospital Course Discharge Diagnosis: 1. Acute kidney injury due to volume depletion due intractable nausea and vomiting caused by acute on chronic alcohol use disorder. 2. Hyponatremia. 3. Hypokalemia. 4. Hypomagnesemia. 5. Leukocytosis, likely stress response, with no evidence of infection. 6. Alcohol use disorder. 7. ADHD. Hospital Course: The patient was admitted and hydrated intravenously. He demonstrated good urine output. Electrolytes were replaced by IV and then switched to oral formulation as he lost his IV, and did not wish to have it replaced. He was highly interested discharge home. He was able to maintain oral intake and did not feel that he would have difficulty at this point. He admits a habit of binge drinking and plans and alcohol rehabilitation program arranged by family member. He is strongly encouraged to arrange close outpatient follow-up and follow-up testing to assure normalization of renal function and leukocytosis and ruling out underlying chronic kidney disease, noting that he has never had normal measured renal function at this facility given lack of follow-up after previous presentations. The patient acknowledged understanding, agreement and appreciation of this plan of care, and agreed to call back with any questions or concerns. Status at Discharge Cognitive/behavioral status at discharge: oriented Functional status at discharge: independent ambulation Overall status at discharge: patient is back to baseline Time Spent with Patient Time spent: Less than 30 minutes Exam Vital Signs (past 8 hours): - 09/07/24 05:56 09/07/24 08:00 Temperature 97.2 F L 98.3 F Pulse Rate 85 94 H Respiratory Rate 16 17 Blood Pressure 132/64 159/84 H Pulse Oximetry 99 100 Oxygen Flow Rate 0 Oxygen Delivery Method Room Air Oxygen Flow Rate 0 Narrative Exam Narrative: GENERAL: This is a well-nourished, well-developed patient, in no apparent distress. HEAD: Atraumatic. Normocephalic. No temporal or scalp tenderness. EYES: Pupils equal round and reactive. Extraocular motions intact. No scleral icterus. No injection or drainage. ENT: Mucous membranes pink and moist. NECK: Trachea midline. No JVD, bruits or lymphadenopathy. Supple, nontender, no meningeal signs. CARDIOVASCULAR: Regular rate and rhythm without murmurs, gallops, or rubs. RESPIRATORY: Clear to auscultation. GASTROINTESTINAL: Abdomen soft, non-tender, nondistended. EXTREMITIES: No clubbing, cyanosis, or edema. BACK: Nontender without deformity or crepitance. No flank tenderness. NEUROLOGIC: Alert, oriented, speech fluent, full upper and lower motor strength, no focal deficits evident. DERMATOLOGIC: No rashes or skin lesions. Objective Labs 09/07/24 02:05 09/07/24 02:05 Labs: Laboratory Results - last 24 hr 09/06/24 09/06/24 09/07/24 19:40 22:55 01:25 WBC 20.4 H RBC 5.26 Hgb 17.9 H Hct 51.1 MCV 97.0 MCH 34.0 MCHC 35.0 RDW 15.8 H Plt Count 195 Neut % (Auto) 81.2 H Lymph % (Auto) 8.2 L [place] % (Auto) 10.4 Eos % (Auto) 0.0 L Baso % (Auto) 0.2 Neut # (Auto) 06520 H Lymph # (Auto) 1700 [place] # (Auto) 2100 H Eos # (Auto) 0 Baso # (Auto) 0 RBC Morphology See below Stomatocytes 2+ H PT INR Sodium 123 L 125 L Potassium 2.8 L 3.5 Chloride < 60 L* 62 L* Carbon Dioxide 37 H 42 H* BUN 106 H* 112 H* Creatinine 4.67 H 3.27 H Estimated GFR 16 L 25 L BUN/Creatinine Ratio 22.7 H 34.3 H Glucose 212 H 95 D Calcium 8.6 6.8 L Magnesium 2.0 Total Bilirubin 1.7 H AST 199 H ALT 185 H Alkaline Phosphatase 102 Total Protein 10.7 H Albumin 5.8 H Globulin 5.52209 H Albumin/Globulin Ratio 1.0 Lipase TSH 0.863 Free T4 1.59 Nasal Screen MRSA (PCR) Detected H Salicylates < 1.0 U Opiates 300ng/mL cut Ur Oxycodone Screen Urine Methadone Screen Acetaminophen < 10 Ur Barbiturates Screen U Tricyclic Antidepress Ur Phencyclidine Scrn Ur Amphetamines Screen U Methamphetamines Scrn Ur MDMA Scrn (Ecstasy) U Benzodiazepines Scrn Urine Cocaine Screen U Marijuana (THC) Screen Urine pH Urine Specific [place] Ethyl Alcohol < 10 Ur Creatinine 09/07/24 09/07/24 02:05 03:30 WBC 17.1 H RBC 4.03 L Hgb 13.7 Hct 39.3 L MCV 97.5 MCH 34.0 MCHC 34.8 RDW 15.8 H Plt Count 125 L Neut % (Auto) 77.0 H Lymph % (Auto) 7.2 L [place] % (Auto) 15.7 H Eos % (Auto) 0.1 L Baso % (Auto) 0.0 Neut # (Auto) 13929 H Lymph # (Auto) 1200 [place] # (Auto) 2700 H Eos # (Auto) 0 Baso # (Auto) 0 RBC Morphology Stomatocytes PT 12.4 INR 1.1 Sodium 124 L Potassium 2.8 L Chloride 69 L* Carbon Dioxide 38 H BUN 100 H Creatinine 3.04 H Estimated GFR 27 L BUN/Creatinine Ratio 32.9 H Glucose 98 Calcium 7.1 L Magnesium 1.4 L Total Bilirubin 1.3 AST 124 H ALT 114 H Alkaline Phosphatase 62 Total Protein 7.3 Albumin 4.3 Globulin 3.0 Albumin/Globulin Ratio 1.4 Lipase 108 TSH Free T4 Nasal Screen MRSA (PCR) Salicylates U Opiates 300ng/mL cut Negative Ur Oxycodone Screen Negative Urine Methadone Screen Negative Acetaminophen Ur Barbiturates Screen Negative U Tricyclic Antidepress Negative Ur Phencyclidine Scrn Negative Ur Amphetamines Screen Negative U Methamphetamines Scrn Negative Ur MDMA Scrn (Ecstasy) Negative U Benzodiazepines Scrn Negative Urine Cocaine Screen Negative U Marijuana (THC) Screen Positive H Urine pH Normal Urine Specific [place] Normal Ethyl Alcohol Ur Creatinine Normal [facility] Medical History Stress at work Hearing decreased Eczema Depression Sinus headache Tinnitus History of alcohol abuse Adult ADHD (attention deficit hyperactivity disorder) Seizure-like activity Seizure (~2016) Family History Mother Buyfj-1-eqclbvcxjmh deficiency Father Diabetes mellitus Social History household members: other Smoking Status: Former smoker alcohol intake: current Discharge Plan Discharge Plan Patient Disposition: Home Provider Discharge Comment: Followup with Dr. Wright 1 week Discharge orders & Medications Follow up/Referrals: Brenden Wright, [Primary Care Provider] - Diet/Activity/Treatments Diet: Regular Visit Report/Discharge Packet Stand Alone Forms: Patient Portal/API, Stroke Signs & Symptoms Discharge Data Primary Care Provider: Brenden Wright Quality MIPS - Admit I confirm the patient?s Advance Care Plan is present, Code status is documented, Surrogate decision maker is in patient?s record [If Yes, STOP here]: Yes MIPS - Meds 'Current medications' to include all prescriptions, [id number] products, herbals, cannabis/cannabidiol products, and vitamin/mineral/dietary (nutritional) supplements. I have utilized all available resources to obtain, update, or review the patient?s current medications. [If Yes, STOP here]: Yes MIPS - DC The patient has a history of heart transplant or Left Ventricular Assist Device (LVAD). If yes, STOP here.: No The patient has current or prior documentation of left ventricular ejection fraction (LVEF) less than or equal to 40%, or moderate or severely depressed left ventricular systolic function.: No A. The patient was prescribed or already taking an Angiotensin-Converting Enzyme (KEM) Inhibitor, or Angiotensin Receptor Yeni (ARB).: No B. The patient was prescribed or already taking a beta-yeni. [If Yes to Both A & B, STOP here]: No Patient not prescribed/taking KEM or ARB, no reason given.: No Patient not prescribed/taking beta-yeni, no reason given.: No [facility] PROFEE Charge Codes Discharge inpatient/observation: [id number]
[2024-09-07] MEDS: MAGNESIUM CHLORIDE 64 MG TABLET 128 MG PO (12:11)
== END 2024-09-07 12:50 | disposition home or self-care (01) ==
LOC: ED 19:20 → AC 23:53 → ICU 09-07 11:54 → AC 09-08 08:58 → ICU 09-08 08:58
PROVIDERS: Admitting Provider Internal Medicine; Emergency Provider Emergency Medicine; Family Provider Family Medicine; PCP Family Medicine; Referring Provider Emergency Medicine; Visit Provider Internal Medicine
DX: N17.8 Other acute kidney failure (principal); F10.20 Alcohol dependence, uncomplicated; E86.0 Dehydration; E87.1 Hypo-osmolality and hyponatremia; E87.6 Hypokalemia; E83.42 Hypomagnesemia; F32.A Depression, unspecified; F90.9 Attention-deficit hyperactivity disorder, unspecified type; Z87.891 Personal history of nicotine dependence; D72.829 Elevated white blood cell count, unspecified
CPT/HCPCS: 36415; 80048; 80053; 80305; 80320; 80329; 83690; 83735; 84439; 84443; 85025; 85610; 87797; 96361; 96365; 96375; 99284; G0378; G0480; J0780; J2405; J2470

== ENCOUNTER → 2024-10-02 15:55 | Outpatient (CLI) | payer OTHER, SELFPAY ==
[2024-09-07 00:25] VITALS: BMI 23.0
[2024-10-02 17:43] LABS: Alanine Aminotransferase 30 IU/L (<50); Albumin 5.2 g/dL (3.5-5.0); Albumin Globulin Ratio 1.4 (1.0-2.8); Alkaline Phosphatase 102 U/L (38-126); Aspartate Aminotransferase 36 IU/L (17-59); BUN Creatinine Ratio 19.8 (6-22); Bilirubin Total 1.2 mg/dL (0.2-1.3); Blood Urea Nitrogen 25 mg/dL (9-20); Calcium 10.2 mg/dL (8.4-10.2); Carbon Dioxide 17 mmol/L (22-32); Chloride 102 mmol/L (98-107); Estimated Glomerular Filt Rate > 60 mL/min (>60); Globulin 3.6 g/dL (1.7-4.1); Glucose 86 mg/dL (70-100); HEMOLYSIS < 15 (0-50); Potassium 4.4 mmol/L (3.4-5.1); Sodium 141 mmol/L (137-145); Total Protein 8.8 g/dL (6.3-8.2)
== END ==
LOC: LAB 15:57
PROVIDERS: Family Provider Family Medicine; PCP Family Medicine; Referring Provider Family Medicine; Visit Provider Family Medicine
DX: E87.6 Hypokalemia (principal); E86.0 Dehydration; E87.1 Hypo-osmolality and hyponatremia; E83.42 Hypomagnesemia
CPT/HCPCS: 36415; 80053